=== PATIENT | female | born 1970 | race Two or more races ===

== ENCOUNTER 2017-02-03 15:07 | Inpatient (IN) | payer SELFPAY ==
[2017-02-03] VITALS (18 sets, daily range): BP systolic 117–180; BP diastolic 72–102
[~2017-02-03] VITALS: Ht 165.1 cm; Wt 86.6 kg
--- NOTE | 2017-02-03 15:55 | PHYS DOC ---
Adult General Chief Complaint Chief Complaint: ABNORMAL LABS HPI HPI Patient is a 46 year old female who presents with history of type 2 diabetes no definite history of congestive heart failure who presents with a one-week history of increased shortness of breath and some chest tightness and increased leg swelling. She was referred here from the [facility] clinic due to low hemoglobin. She denies any nausea vomiting diarrhea melena black stool or hematemesis. She had a very light menstrual period one month ago denies heavy vaginal bleeding. Has never received a transfusion before. Recent diagnosis of UTI on Monday and started on Bactrim. She has a history of taking Lasix. Review of Systems Review of Systems Constitutional: Denies fever or chills [] Eyes: Denies change in visual acuity, redness, or eye pain [] HENT: Denies nasal congestion or sore throat [] Respiratory: Denies cough or shortness of breath [] Cardiovascular: No additional information not addressed in HPI [] GI: Denies abdominal pain, nausea, vomiting, bloody stools or diarrhea [] : Denies dysuria or hematuria [] Musculoskeletal: Denies back pain or joint pain [] Integument: Denies rash or skin lesions [] Neurologic: Denies headache, focal weakness or sensory changes [] Endocrine: Denies polyuria or polydipsia [] Current Medications Current Medications Current Medications Medications (Trade) Dose Ordered Sig/Evan Start Time Stop Time Status Last Admin Dose Admin Furosemide (Lasix) 40 mg 1X ONCE 02/03/17 16:45 02/03/17 16:46 Allergies Allergies Allergies Coded Allergies Type Severity Reaction Last Updated Verified No Known Drug Allergies 02/03/17 No Physical Exam Physical Exam Constitutional: Well developed, well nourished, mild respiratory acute distress , non-toxic appearance. [] HENT: Normocephalic, atraumatic, bilateral external ears normal, oropharynx moist, no oral exudates, nose normal. [] Eyes: PERRLA, EOMI, conjunctiva pale, no discharge. [] Neck: Normal range of motion, no tenderness, supple, no stridor. [] Cardiovascular:Heart rate regular rhythm, no murmur [] Lungs & Thorax: Bilateral breath sounds clear to auscultation [] Abdomen: Bowel sounds normal, soft, no tenderness, no masses, no pulsatile masses. [] Skin: Warm, dry, no erythema, no rash. [] Back: No tenderness, no CVA tenderness. [] Extremities: No tenderness, no cyanosis, no clubbing, ROM intact, 2+ pitting edema. [] Neurologic: Alert and oriented X 3, normal motor function, normal sensory function, no focal deficits noted. [] Psychologic: Affect normal, judgement normal, mood normal. [] Current Patient Data Vital Signs Vital Signs Date Time Temp Pulse Resp B/P (MAP) Pulse Ox O2 Delivery O2 Flow Rate FiO2 02/03/17 15:45 98.5 96 18 196/93 (127) 100 Room Air 98.5 Lab Values Laboratory Tests Test 02/03/17 15:15 White Blood Count 9.9 x10^3/uL (4.0-11.0) Red Blood Count 4.08 x10^6/uL (3.50-5.40) Hemoglobin 5.5 g/dL (12.0-15.5) *L Hematocrit 21.6 % (36.0-47.0) L Mean Corpuscular Volume 53 fL (79-100) L Mean Corpuscular Hemoglobin 14 pg (25-35) L Mean Corpuscular Hemoglobin Concent 26 g/dL (31-37) L Red Cell Distribution Width 21.6 % (11.5-14.5) H Platelet Count 481 x10^3/uL (140-400) H Neutrophils (%) (Auto) 75 % (31-73) H Lymphocytes (%) (Auto) 16 % (24-48) L Monocytes (%) (Auto) 7 % (0-9) Eosinophils (%) (Auto) 2 % (0-3) Basophils (%) (Auto) 1 % (0-3) Neutrophils # (Auto) 7.4 x10^3uL (1.8-7.7) Lymphocytes # (Auto) 1.6 x10^3/uL (1.0-4.8) Monocytes # (Auto) 0.6 x10^3/uL (0.0-1.1) Eosinophils # (Auto) 0.2 x10^3/uL (0.0-0.7) Basophils # (Auto) 0.1 x10^3/uL (0.0-0.2) Platelet Estimate Pending Laboratory Tests 02/03/17 15:15 EKG EKG EKG normal sinus rhythm rate of 88 no STEMI somewhat low voltage QTC normal my interpretation] Radiology/Procedures Radiology/Procedures Chest x-ray [cardiomegaly my review my interpretation] Course & Med Decision Making Course & Med Decision Making Pertinent Labs and Imaging studies reviewed. (See chart for details) Labs showed a hemoglobin that was critically low at 5 MCV of 50 consistent with severe iron deficiency anemia. TSH was elevated at 25 consistent with hypothyroidism.. Patient has been crossmatched for 2 units packed red blood cells to be transfused when ready and give a dose of Lasix as the patient appears to be fluid overloaded and is hypertensive in the 190s. Due to the vital sign and amount 80s and low hemoglobin we will place in the ICU at least overnight. [] Dragon Disclaimer Dragon Disclaimer This electronic medical record was generated, in whole or in part, using a voice recognition dictation system. Departure Departure Impression: Primary Impression: Severe anemia Additional Impression: Hypothyroidism Disposition: ADMITTED INPATIENT Admitting Physician: Kiesha Reis Condition: GOOD Referrals: ROB KIM MD (PCP) Problem Qualifiers DAYANA DODGE MD Feb 03, 2017 15:55
--- NOTE | 2017-02-03 16:16 | RAD ---
Chest radiograph 02/03/2017 at 1605 hours Indication: Shortness of breath for one week and chest tightness Comparison: None available Technique: Portable frontal upright view of the chest is provided. Findings: Cardiomediastinal silhouette is borderline enlarged. There is a small right pleural effusion with adjacent compressive atelectasis and/or airspace disease. Pleural fluid appears to be tracking along the right lateral chest wall. No pneumothorax. No pulmonary vascular congestion. Impression: 1. Small right pleural effusion with adjacent atelectasis and/or infiltrate. 2. Borderline enlargement of the cardiac silhouette.
[2017-02-03 16:24] LABS: BILIRUBIN,URINE NEGATIVE (NEG); GLUCOSE,URINE NEGATIVE (NEG); NITRITE,URINE NEGATIVE (NEG); PH,URINE 6.5; PROTEIN,URINE NEGATIVE (NEG-TRACE)
[2017-02-03 16:28] LABS: BASO # 0.1 x10^3/uL (0.0-0.2); BASO % 1 % (0-3); EOS % 2 % (0-3); HEMATOCRIT 21.6 % (36.0-47.0); LYMPH # 1.6 x10^3/uL (1.0-4.8); LYMPH % 16 % (24-48); MEAN CORPUSCULAR HEMOGLOBIN 14 pg (25-35); MEAN CORPUSCULAR HGB CONC 26 g/dL (31-37); MEAN CORPUSCULAR VOLUME 53 fL (79-100); MONO % 7 % (0-9); NEUT % 75 % (31-73); PLATELET COUNT 481 x10^3/uL (140-400); RED BLOOD COUNT 4.08 x10^6/uL (3.50-5.40); RED CELL DISTRIBUTION WIDTH 21.6 % (11.5-14.5); WHITE BLOOD COUNT 9.9 x10^3/uL (4.0-11.0)
[2017-02-03 16:33] LABS: HEMOGLOBIN 5.5 g/dL (12.0-15.5)
[2017-02-03 16:38] LABS: RBC,URINE 0 /HPF (0-2)
[2017-02-03 16:39] LABS: BACTERIA,URINE FEW /HPF (0-FEW); SQUAMOUS EPITHELIAL CELL,UR FEW /LPF
[2017-02-03 16:43] LABS: CALCIUM 8.6 mg/dL (8.5-10.1); CREATININE 0.7 mg/dL (0.6-1.0); GFR 90.1
[2017-02-03] MEDS ORDERED: FUROSEMIDE 40 MG/4 ML VIAL. IVP ONE (16:45)
[2017-02-03] MEDS ORDERED: PROCHLORPERAZINE 10 MG/2 ML VIAL. IV PRN (16:45)
[2017-02-03] MEDS ORDERED: ACETAMINOPHEN 325 MG TABLET. PO PRN (16:45)
[2017-02-03] MEDS ORDERED: ONDANSETRON PF 4 MG/2 ML VIAL. IV PRN (16:45)
[2017-02-03] MEDS ORDERED: LABETALOL 20 MG/4 ML DISP.SYRIN. IVP PRN (16:45)
[2017-02-03] MEDS ORDERED: MORPHINE SULFATE 2 MG/ML DISP.SYRIN. IV PRN (16:45)
[2017-02-03 16:49] LABS: ANISOCYTOSIS MOD; HYPOCHROMIA MARKED; MICROCYTOSIS MARKED; PLT ESTIMATE INCREASED (ADEQUATE); POLYCHROMASIA SLIGHT
[2017-02-03 16:52] LABS: ALBUMIN 3.6 g/dL (3.4-5.0); ALBUMIN/GLOBULIN RATIO 0.8 (1.0-1.7); TOTAL BILIRUBIN 0.6 mg/dL (0.2-1.0); TOTAL PROTEIN 8.4 g/dL (6.4-8.2)
[2017-02-03 16:59] LABS: % SAT IRON 2 % (15-34); IRON,SERUM 10 ug/dL (50-170)
[2017-02-03] MEDS ORDERED: LEVOTHYROXINE 150 MCG TABLET PO SCH (17:00)
--- NOTE | 2017-02-03 17:12 | PDOC1 ---
History and Physical Date of Admission Date of Admission DATE: 02/03/17 TIME: 17:03 Identification/Chief Complaint Chief Complaint soa, leg swelling, gaining weight Problems: Source Source: Caregiver, Chart review, Patient History of Present Illness History of Present Illness 46 y.o female follows at [facility], sent it for abN labs, severe anemia and UTI started on PO bactrim BUt upon ER arrival, plus 3-4 pitting leg edema, SOA, obese, puffy all over, CXR shows some congestion, - all new to pt NO known cardiac dse BUT TSH is 25, Hx obtained via electrical products engineer, claims was on thyroid medication 6 mos ago , but was stopped bec levels were "normal"/did not need it" NOw admits to few days hx "fluid all over", leg swelling. HGb 5,.5, MCV 50s, spotty menses only (emilie menopausal), denies black tarry stool or hematochezia Will get a dose of lasix at ER THESE labs and PE findings are all from SEVERE HYPOTHYRODISM, and i did educate and milieu counselor > 30 mins on phone alone, Discussed importance of taking meds and having levels rechecked in 4 weeks,. Luckily no coma, will give first dose of PO synthroid now weight based, transfuse after iron panel obtained and agree with ICU. COnt antibiotics for UTI Dw SHEET METAL FORMER and ER MD, SHEET METAL FORMER at bedside and chief internal auditor Past Medical History Pulmonary: Bronchitis Infectious disease: Other (UTI) Endocrine: Hypothyroidism Past Surgical History Past Surgical History: No pertinent history Family History Family History: High Cholestrol, Hypertension Social History Smoke: No ALCOHOL: none Drugs: None Current Medications Current Medications Current Medications Furosemide (Lasix) 40 mg 1X ONCE IVP ; Start 02/03/17 at 16:45; Stop 02/03/17 at 16:46; Status DC Ondansetron HCl (Zofran) 4 mg PRN Q6HRS PRN IV NAUSEA/VOMITING; Start 02/03/17 at 16:45 Prochlorperazine Edisylate (Compazine) 10 mg PRN Q6HRS PRN IV NAUSEA/VOMITING; Start 02/03/17 at 16:45 Oxycodone HCl (Roxicodone) 5 mg PRN Q3HRS PRN PO BREAKTHROUGH PAIN; Start 02/03 at 16:45 Morphine Sulfate 1 mg PRN Q1HR PRN IV PAIN; Start 02/03/17 at 16:45 Acetaminophen (Tylenol) 650 mg PRN Q6HRS PRN PO Headaches, Temp > 101.5F; Start 02/03/17 at 16:45 Levothyroxine Sodium (Synthroid) 150 mcg DAILY07 PO ; Start 02/03/17 at 17:00; Status Cancel Labetalol HCl (Normodyne) 10 mg PRN Q2HR PRN IVP 160/100; Start 02/03/17 at 16: 45 Levothyroxine Sodium (Synthroid) 150 mcg DAILY07 PO ; Start 02/03/17 at 17:00 Allergies Allergies: Coded Allergies: No Known Drug Allergies (Unverified , 02/03/17) ROS General: YES: Fatigue, Malaise, Appetite (dec PO) PSYCHOLOGICAL ROS: YES: Decreased libido Eyes: No Blurry vision, No Decreased vision, No Double vision, No Dry eyes, No Excessive tearing, No Eye Pain, No Itchy Eyes, No Loss of vision, No Photophobia , No Scotomata, No Uses contacts, No Uses glasses, No Other HEENT: No: Heacaches, Visual Changes, Hearing change, Nasal congestion, Nasal discharge, Oral lesions, Sinus pain, Sore Throat, Epistaxis, Sneezing, Snoring, Tinnitus, Vertigo, Vocal changes, Other ALLERGY AND IMMUNOLOGY: No: Hives, Insect Bite Sensitivity, Itchy/Watery Eyes, Nasal Congestion, Post Nasal Drip, Seasonal Allergies, Other Hematological and Lymphatic: No: Bleeding Problems, Blood Clots, Blood Transfusions, Brusing, Night Sweats, Pallor, Swollen Lymph Nodes, Other ENDOCRINE: No: Breast Changes, Galactorrhea, Hair Pattern Changes, Hot Flashes , Malaise/lethargy, Mood Swings, Palpitations, Polydipsia/polyuria, Skin Changes , Temperature Intolerance, Unexpected Weight Changes, Other Breast: No New/Changing Breast Lumps, No Nipple changes, No Nipple discharge, No Other Respiratory: YES: Shortness of breath, SOB with excertion Cardiovascular: yes Edema Gastrointestinal: No Nausea, No Vomiting, No Abdominal Pain, No Diarrhea, No Constipation, No Melena, No Hematochezia, No Other Genitourinary: No Dysuria, No Frequency, No Incontinence, No Hematuria, No Retention, No Discharge, No Urgency, No Pain, No Flank Pain, No Other, No , No , No , No , No , No , No Musculoskeletal: No Gait Disturbance, No Joint Pain, No Joint Stiffness, No Joint Swelling, No Muscle Pain, No Muscular Weakness, No Pain In:, No Swelling In:, No Other Neurological: No Behavorial Changes, No Bowel/Bladder ControlChng, No Confusion , No Dizziness, No Gait Disturbance, No Headaches, No Impaired Coord/balance, No Memory Loss, No Numbness/Tingling, No Seizures, No Speech Problems, No Tremors, No Visual Changes, No Weakness, No Other Skin: No Dry Skin, No Eczema, No Hair Changes, No Lumps, No Mole Changes, No Mottling, No Nail Changes, No Pruritus, No Rash, No Skin Lesion Changes, No Other, No Acne Physical Exam General: Alert, Oriented X3, Cooperative, No acute distress HEENT: Atraumatic, PERRLA Lungs: Normal air movement, Other (dec BS, poor effort) Cardiovascular: S1, S2 Breasts: Normal Abdomen: Normal bowel sounds, Soft, No tenderness, No hepatosplenomegaly, No masses Rectal Exam: not examined Extremities: Other (plus 3 pitting edema) Skin: No rashes, No breakdown, No significant lesion Neuro: Normal gait, Normal speech, Strength at 5/5 X4 ext, Normal tone, Sensation intact, Cranial nerves 3-12 NL, Reflexes 2+ Psych/Mental Status: Mental status NL, Mood NL Vitals Vitals Vital Signs Date Time Temp Pulse Resp B/P (MAP) Pulse Ox O2 Delivery O2 Flow Rate FiO2 02/03/17 15:45 98.5 96 18 196/93 (127) 100 Room Air 98.5 Labs Labs Laboratory Tests Test 02/03/17 15:15 02/03/17 16:10 White Blood Count 9.9 x10^3/uL (4.0-11.0) Red Blood Count 4.08 x10^6/uL (3.50-5.40) Hemoglobin 5.5 g/dL (12.0-15.5) Hematocrit 21.6 % (36.0-47.0) Mean Corpuscular Volume 53 fL (79-100) Mean Corpuscular Hemoglobin 14 pg (25-35) Mean Corpuscular Hemoglobin Concent 26 g/dL (31-37) Red Cell Distribution Width 21.6 % (11.5-14.5) Platelet Count 481 x10^3/uL (140-400) Neutrophils (%) (Auto) 75 % (31-73) Lymphocytes (%) (Auto) 16 % (24-48) Monocytes (%) (Auto) 7 % (0-9) Eosinophils (%) (Auto) 2 % (0-3) Basophils (%) (Auto) 1 % (0-3) Neutrophils # (Auto) 7.4 x10^3uL (1.8-7.7) Lymphocytes # (Auto) 1.6 x10^3/uL (1.0-4.8) Monocytes # (Auto) 0.6 x10^3/uL (0.0-1.1) Eosinophils # (Auto) 0.2 x10^3/uL (0.0-0.7) Basophils # (Auto) 0.1 x10^3/uL (0.0-0.2) Platelet Estimate Increased (ADEQUATE) Polychromasia Slight Hypochromasia Marked Anisocytosis Mod Microcytosis Marked Sodium Level 134 mmol/L (136-145) Potassium Level 4.0 mmol/L (3.5-5.1) Chloride Level 100 mmol/L (98-107) Carbon Dioxide Level 26 mmol/L (21-32) Anion Gap 8 (6-14) Blood Urea Nitrogen 12 mg/dL (7-20) Creatinine 0.7 mg/dL (0.6-1.0) Estimated GFR (Cockcroft-Gault) 90.1 BUN/Creatinine Ratio 17 (6-20) Glucose Level 208 mg/dL (70-99) Calcium Level 8.6 mg/dL (8.5-10.1) Total Bilirubin 0.6 mg/dL (0.2-1.0) Aspartate Amino Transf (AST/SGOT) 37 U/L (15-37) Alanine Aminotransferase (ALT/SGPT) 18 U/L (14-59) Alkaline Phosphatase 115 U/L (46-116) Troponin I Quantitative < 0.017 ng/mL (0.000-0.055) QN-Etu-T-Type Natriuretic Peptide 79 pg/mL (0-124) Total Protein 8.4 g/dL (6.4-8.2) Albumin 3.6 g/dL (3.4-5.0) Albumin/Globulin Ratio 0.8 (1.0-1.7) Lipase 216 U/L (73-393) Urine Collection Type Unknown Urine Color Yellow Urine Clarity Clear Urine pH 6.5 Urine Specific Hardy 1.015 Urine Protein Negative mg/dL (NEG-TRACE) Urine Glucose (UA) Negative mg/dL (NEG) Urine Ketones (Stick) Negative mg/dL (NEG) Urine Blood Negative (NEG) Urine Nitrite Negative (NEG) Urine Bilirubin Negative (NEG) Urine Urobilinogen Dipstick 1.0 mg/dL (0.2 mg/dL) Urine Leukocyte Esterase Moderate (NEG) Urine RBC 0 /HPF (0-2) Urine WBC 5-10 /HPF (0-4) Urine Squamous Epithelial Cells Few /LPF Urine Bacteria Few /HPF (0-FEW) Urine Mucus Slight /LPF Laboratory Tests Test 02/03/17 15:15 02/03/17 16:10 White Blood Count 9.9 x10^3/uL (4.0-11.0) Red Blood Count 4.08 x10^6/uL (3.50-5.40) Hemoglobin 5.5 g/dL (12.0-15.5) Hematocrit 21.6 % (36.0-47.0) Mean Corpuscular Volume 53 fL (79-100) Mean Corpuscular Hemoglobin 14 pg (25-35) Mean Corpuscular Hemoglobin Concent 26 g/dL (31-37) Red Cell Distribution Width 21.6 % (11.5-14.5) Platelet Count 481 x10^3/uL (140-400) Neutrophils (%) (Auto) 75 % (31-73) Lymphocytes (%) (Auto) 16 % (24-48) Monocytes (%) (Auto) 7 % (0-9) Eosinophils (%) (Auto) 2 % (0-3) Basophils (%) (Auto) 1 % (0-3) Neutrophils # (Auto) 7.4 x10^3uL (1.8-7.7) Lymphocytes # (Auto) 1.6 x10^3/uL (1.0-4.8) Monocytes # (Auto) 0.6 x10^3/uL (0.0-1.1) Eosinophils # (Auto) 0.2 x10^3/uL (0.0-0.7) Basophils # (Auto) 0.1 x10^3/uL (0.0-0.2) Platelet Estimate Increased (ADEQUATE) Polychromasia Slight Hypochromasia Marked Anisocytosis Mod Microcytosis Marked Sodium Level 134 mmol/L (136-145) Potassium Level 4.0 mmol/L (3.5-5.1) Chloride Level 100 mmol/L (98-107) Carbon Dioxide Level 26 mmol/L (21-32) Anion Gap 8 (6-14) Blood Urea Nitrogen 12 mg/dL (7-20) Creatinine 0.7 mg/dL (0.6-1.0) Estimated GFR (Cockcroft-Gault) 90.1 BUN/Creatinine Ratio 17 (6-20) Glucose Level 208 mg/dL (70-99) Calcium Level 8.6 mg/dL (8.5-10.1) Total Bilirubin 0.6 mg/dL (0.2-1.0) Aspartate Amino Transf (AST/SGOT) 37 U/L (15-37) Alanine Aminotransferase (ALT/SGPT) 18 U/L (14-59) Alkaline Phosphatase 115 U/L (46-116) Troponin I Quantitative < 0.017 ng/mL (0.000-0.055) XH-Tfx-J-Type Natriuretic Peptide 79 pg/mL (0-124) Total Protein 8.4 g/dL (6.4-8.2) Albumin 3.6 g/dL (3.4-5.0) Albumin/Globulin Ratio 0.8 (1.0-1.7) Lipase 216 U/L (73-393) Urine Collection Type Unknown Urine Color Yellow Urine Clarity Clear Urine pH 6.5 Urine Specific Hardy 1.015 Urine Protein Negative mg/dL (NEG-TRACE) Urine Glucose (UA) Negative mg/dL (NEG) Urine Ketones (Stick) Negative mg/dL (NEG) Urine Blood Negative (NEG) Urine Nitrite Negative (NEG) Urine Bilirubin Negative (NEG) Urine Urobilinogen Dipstick 1.0 mg/dL (0.2 mg/dL) Urine Leukocyte Esterase Moderate (NEG) Urine RBC 0 /HPF (0-2) Urine WBC 5-10 /HPF (0-4) Urine Squamous Epithelial Cells Few /LPF Urine Bacteria Few /HPF (0-FEW) Urine Mucus Slight /LPF VTE Prophylaxis Ordered VTE Prophylaxis Devices: Yes VTE Pharmacological Prophylaxi: Yes Assessment/Plan Assessment/Plan 1. Severe hypothyroidism with no coma (TSH 25) 2. Plus 3-4 pitting edema 3. SOA, Pulm congestion sec to # 1 4. Severe microcytic anemia (hgb 5) 5. Emilie menopausal 6. Obesity 7. UTI PLAN: Admit ICU Agree with lasix Start synthroid based on weight will get 150mcg PO daily on an empty stomach preferably Supportive care NEbs Transfuse 2 pRBC properly typed and cross match AFTER getting iron panel; All signs and sxs can be explained by severe hypothyroidism Check T3 abnd T4, should be appropriately LOW, otherwise will need MRI brain r.o secondary causes Rpt Thyrpid levels in 4 weeks as OP Dw via phone surgical assistant certified, signif counselling CC 45 mins CHRISTOPHER PERKINS MD Feb 03, 2017 17:12
[2017-02-03 17:13] LABS: FREE T4 0.76 ng/dL (0.76-1.46)
[2017-02-03] MEDS: LEVOTHYROXINE 150 MCG TABLET PO SCH (18:48)
[2017-02-03] MEDS: oxyCODONE IR 5 MG TABLET PO PRN (21:29)
[2017-02-03] MEDS: SMZ/TMP 800/160MG TABLET. PO SCH (21:29)
[2017-02-03] MEDS: FERROUS SULFATE 325 MG TABLET. PO SCH (21:31)
[2017-02-03 22:51] LABS: HEMATOCRIT 25.7 % (36.0-47.0); HEMOGLOBIN 7.5 g/dL (12.0-15.5); RED BLOOD COUNT 4.42 x10^6/uL (3.50-5.40); RED CELL DISTRIBUTION WIDTH 30.3 % (11.5-14.5); WHITE BLOOD COUNT 10.5 x10^3/uL (4.0-11.0)
--- NOTE | 2017-02-03 23:35 | ACF ---
Admission Forms Criteria ANEMIA, IRON DEFICIENCY OR UNSPECIFIED Clinical Indications for Inpatient Care (Place 'X' for any and all applicable criteria): Admission is indicated for ANY ONE of the following(1)(2)(3)(4)(5)(6)(7): [X] I. Inpatient admission required rather than observation care (Also use Anemia, Iron Deficiency or Unspecified: Observation Care guideline as appropriate) because of ANY ONE of the following: [] a) Hemodynamic instability that is severe or persistent [] b) Active bleeding that cannot be rapidly controlled [] c) CVS symptoms (i.e., dyspnea, chest pain, heart failure) that are severe or persistent [] d) Neurologic symptoms (i.e., cognitive impairment, recurrent syncope or near syncope) that are severe or persistent [] e) Cardiac arrhythmias of immediate concern [] f) Acute peripheral ischemia (e.g., pulseless, cool, mottled, or cyanotic extremity) [] g) High-risk low platelet count [] h) Acute renal failure [] i) Ongoing transfusion for blood loss (greater than 2 units) [] j) IV fluid to replace significant ongoing (eg, >24 hours) losses (> 3 L/m2 per day) [] k) Pulmonary artery catheter monitoring [] l) Supplemental oxygen or respiratory treatments for over 24 hours that are performable only in acute inpatient setting [] m) Immediate inpatient surgery [X] n) Other condition, treatment or monitoring requiring inpatient admission [] II Active massive hemorrhage [] III. Active hemolysis with rapidly progressive anemia [A](6) Extended stay beyond goal length of stay may be needed for (17)(18) []a) Diagnosed cause of anemia requiring longer hospitalization (eg, active GI bleeding, immune hemolysis requiring electrophoresis, complications of malignancy requiring acute care []b) Continued emergent anemia indicators (23) []c) Transfusion reactions []d) Associated leukopenia or thrombocytopenia needing inpatient care []e) Active comorbidities (eg, renal failure, heart failure) The original [facility] content created by [facility] has been revised. The portions of the content which have been revised are identified through the use of italic text or in bold. [facility] Guidelines has neither reviewed nor approved the modified material. All other unmodified content is copyright [facility]. Please see references footnoted in the original [facility] edition 2016 Admission Criteria Met?: Yes SUDHA DOUGHERTY Feb 03, 2017 23:35
[2017-02-04] VITALS (15 sets, daily range): BP systolic 113–167; BP diastolic 63–95
[2017-02-04 05:16] LABS: BASO # 0.1 x10^3/uL (0.0-0.2); BASO % 1 % (0-3); EOS % 2 % (0-3); HEMATOCRIT 25.1 % (36.0-47.0); HEMOGLOBIN 7.4 g/dL (12.0-15.5); LYMPH # 1.8 x10^3/uL (1.0-4.8); LYMPH % 17 % (24-48); MEAN CORPUSCULAR HEMOGLOBIN 17 pg (25-35); MEAN CORPUSCULAR HGB CONC 29 g/dL (31-37); MEAN CORPUSCULAR VOLUME 58 fL (79-100); MONO % 7 % (0-9); NEUT % 73 % (31-73); PLATELET COUNT 424 x10^3/uL (140-400); RED BLOOD COUNT 4.31 x10^6/uL (3.50-5.40); RED CELL DISTRIBUTION WIDTH 29.9 % (11.5-14.5); WHITE BLOOD COUNT 10.2 x10^3/uL (4.0-11.0)
[2017-02-04 05:30] LABS: CALCIUM 8.4 mg/dL (8.5-10.1); CREATININE 0.6 mg/dL (0.6-1.0); GFR 107.6; POTASSIUM 3.8 mmol/L (3.5-5.1)
[2017-02-04] MEDS: LEVOTHYROXINE 150 MCG TABLET PO SCH (07:55)
[2017-02-04] MEDS: FERROUS SULFATE 325 MG TABLET. PO SCH ×2 (08:25→17:23)
[2017-02-04] MEDS: SMZ/TMP 800/160MG TABLET. PO SCH ×2 (08:26→20:21)
[2017-02-04] MEDS: oxyCODONE IR 5 MG TABLET PO PRN ×2 (08:26→23:23)
[2017-02-04] MEDS ORDERED: FUROSEMIDE 40 MG/4 ML VIAL. IVP SCH (09:00)
[2017-02-04] MEDS ORDERED: DEXTROSE 50% 25 GM / 50ML DISP.SYRIN. IV PRN (09:30)
--- NOTE | 2017-02-04 09:36 | PDOC2 ---
CARDIAC CONSULT DATE OF CONSULT Date of Consult DATE: 02/04/17 TIME: 09:30 REASON FOR CONSULT Reason for Consult: New onset CHF REFERRING PHYSICIAN Referring Physician: Smiley SOURCE Source: Chart review, Patient HISTORY OF PRESENT ILLNESS HISTORY OF PRESENT ILLNESS This is a 46 yo female admitted for complains of SOA and leg swelling. Reports that she has been SOA for thed last few days with MIKE. Denies any CP, palpitations. Pt reports no obvious bleed. She does have hypothyroidism, HTN, and DM2 but she has not been taking her medications verablizing that she is better. She is wanting to go home currently and explained to her the treatment plan. Denies any CAD, VTE. Per chart review noted with past CHF. Presently she is having tingling to her LE but no pain otherwise denies any discomfort. PAST MEDICAL HISTORY Cardiovascular: CHF, HTN, Hyperlipidemia Pulmonary: No pertinent hx CENTRAL NERVOUS SYSTEM: Other (No pertinent history) GI: No pertinent hx Hepatobiliary: No pertinent hx Renal/: UTI Endocrine: Diabetes (2), Hypothyroidism PAST SURGICAL HISTORY Past Surgical History: No pertinent history FAMILY HISTORY Family History: Family History Unknown SOCIAL HISTORY Smoke: No ALCOHOL: none Drugs: None CURRENT MEDICATIONS CURRENT MEDICATIONS Current Medications Medications (Trade) Dose Ordered Sig/Evan Route PRN Reason Start Time Stop Time Status Last Admin Dose Admin Furosemide (Lasix) 40 mg 1X ONCE IVP 02/03/17 16:45 02/03/17 16:46 DC 02/03/17 17:18 Ondansetron HCl (Zofran) 4 mg PRN Q6HRS PRN IV NAUSEA/VOMITING 02/03/17 16:45 02/03/17 17:17 Oxycodone HCl (Roxicodone) 5 mg PRN Q3HRS PRN PO BREAKTHROUGH PAIN 02/03/17 16:45 02/04/17 08:26 Morphine Sulfate 1 mg PRN Q1HR PRN IV PAIN 02/03/17 16:45 02/03/17 22:13 Levothyroxine Sodium (Synthroid) 150 mcg DAILY07 PO 02/03/17 17:00 02/04/17 07:55 Trimethoprim/ Sulfamethoxazole (Bactrim Ds) 1 tab BID PO 02/03/17 20:00 02/04/17 08:26 Furosemide (Lasix) 40 mg DAILY IVP 02/04/17 09:00 02/04/17 08:25 Ferrous Sulfate (Feosol) 325 mg DAILYWBKFT PO 02/03/17 20:15 02/04/17 08:25 ALLERGIES ALLERGIES: Coded Allergies: No Known Drug Allergies (Unverified , 02/03/17) ROS Review of System Not in distress. Feels better after blood transfusion. limited due to language barrier PHYSICAL EXAM General: Alert, Oriented X3, Cooperative, No acute distress HEENT: Atraumatic, Mucous membr. moist/pink Lungs: Other (basilra crackles) Heart: Regular rate (SR), Normal S1, Normal S2, Other (2/6 ysstolic murmur to LLS border) Abdomen: Soft, No tenderness Extremities: No cyanosis, Other (2+ bilateral LE pitting edema) Skin: No breakdown, No significant lesion Neuro: Normal speech, Sensation intact Psych/Mental Status: Mental status NL, Mood NL MUSCULOSKELETAL: Osteoarthritic changes both hands VITALS VITALS Vital Signs Date Time Temp Pulse Resp B/P (MAP) Pulse Ox O2 Delivery O2 Flow Rate FiO2 02/04/17 08:26 21 98 Room Air 02/04/17 08:00 99.3 84 133/77 (95) 99.3 LABS Lab: Laboratory Tests Test 02/03/17 15:15 02/03/17 16:10 02/03/17 16:35 02/03/17 22:45 White Blood Count 9.9 x10^3/uL (4.0-11.0) 10.5 x10^3/uL (4.0-11.0) Red Blood Count 4.08 x10^6/uL (3.50-5.40) 4.42 x10^6/uL (3.50-5.40) Hemoglobin 5.5 g/dL (12.0-15.5) 7.5 g/dL (12.0-15.5) Hematocrit 21.6 % (36.0-47.0) 25.7 % (36.0-47.0) Mean Corpuscular Volume 53 fL (79-100) 58 fL (79-100) Mean Corpuscular Hemoglobin 14 pg (25-35) 17 pg (25-35) Mean Corpuscular Hemoglobin Concent 26 g/dL (31-37) 29 g/dL (31-37) Red Cell Distribution Width 21.6 % (11.5-14.5) 30.3 % (11.5-14.5) Platelet Count 481 x10^3/uL (140-400) 464 x10^3/uL (140-400) Neutrophils (%) (Auto) 75 % (31-73) Lymphocytes (%) (Auto) 16 % (24-48) Monocytes (%) (Auto) 7 % (0-9) Eosinophils (%) (Auto) 2 % (0-3) Basophils (%) (Auto) 1 % (0-3) Neutrophils # (Auto) 7.4 x10^3uL (1.8-7.7) Lymphocytes # (Auto) 1.6 x10^3/uL (1.0-4.8) Monocytes # (Auto) 0.6 x10^3/uL (0.0-1.1) Eosinophils # (Auto) 0.2 x10^3/uL (0.0-0.7) Basophils # (Auto) 0.1 x10^3/uL (0.0-0.2) Platelet Estimate Increased (ADEQUATE) Polychromasia Slight Hypochromasia Marked Anisocytosis Mod Microcytosis Marked Sodium Level 134 mmol/L (136-145) Potassium Level 4.0 mmol/L (3.5-5.1) Chloride Level 100 mmol/L (98-107) Carbon Dioxide Level 26 mmol/L (21-32) Anion Gap 8 (6-14) Blood Urea Nitrogen 12 mg/dL (7-20) Creatinine 0.7 mg/dL (0.6-1.0) Estimated GFR (Cockcroft-Gault) 90.1 BUN/Creatinine Ratio 17 (6-20) Glucose Level 208 mg/dL (70-99) Calcium Level 8.6 mg/dL (8.5-10.1) Total Bilirubin 0.6 mg/dL (0.2-1.0) Aspartate Amino Transf (AST/SGOT) 37 U/L (15-37) Alanine Aminotransferase (ALT/SGPT) 18 U/L (14-59) Alkaline Phosphatase 115 U/L (46-116) Troponin I Quantitative < 0.017 ng/mL (0.000-0.055) ZR-[id number]-R-Type Natriuretic Peptide 79 pg/mL (0-124) Total Protein 8.4 g/dL (6.4-8.2) Albumin 3.6 g/dL (3.4-5.0) Albumin/Globulin Ratio 0.8 (1.0-1.7) Lipase 216 U/L (73-393) Urine Collection Type Unknown Urine Color Yellow Urine Clarity Clear Urine pH 6.5 Urine Specific [place] 1.015 Urine Protein Negative mg/dL (NEG-TRACE) Urine Glucose (UA) Negative mg/dL (NEG) Urine Ketones (Stick) Negative mg/dL (NEG) Urine Blood Negative (NEG) Urine Nitrite Negative (NEG) Urine Bilirubin Negative (NEG) Urine Urobilinogen Dipstick 1.0 mg/dL (0.2 mg/dL) Urine Leukocyte Esterase Moderate (NEG) Urine RBC 0 /HPF (0-2) Urine WBC 5-10 /HPF (0-4) Urine Squamous Epithelial Cells Few /LPF Urine Bacteria Few /HPF (0-FEW) Urine Mucus Slight /LPF Iron Level 10 ug/dL (50-170) Total Iron Binding Capacity 463 ug/dL (250-450) Iron Saturation 2 % (15-34) Free Thyroxine 0.76 ng/dL (0.76-1.46) Free Triiodothyronine (T3) pg/mL 1.91 pg/mL (2.18-3.98) Test 02/04/17 04:30 White Blood Count 10.2 x10^3/uL (4.0-11.0) Red Blood Count 4.31 x10^6/uL (3.50-5.40) Hemoglobin 7.4 g/dL (12.0-15.5) Hematocrit 25.1 % (36.0-47.0) Mean Corpuscular Volume 58 fL (79-100) Mean Corpuscular Hemoglobin 17 pg (25-35) Mean Corpuscular Hemoglobin Concent 29 g/dL (31-37) Red Cell Distribution Width 29.9 % (11.5-14.5) Platelet Count 424 x10^3/uL (140-400) Neutrophils (%) (Auto) 73 % (31-73) Lymphocytes (%) (Auto) 17 % (24-48) Monocytes (%) (Auto) 7 % (0-9) Eosinophils (%) (Auto) 2 % (0-3) Basophils (%) (Auto) 1 % (0-3) Neutrophils # (Auto) 7.5 x10^3uL (1.8-7.7) Lymphocytes # (Auto) 1.8 x10^3/uL (1.0-4.8) Monocytes # (Auto) 0.7 x10^3/uL (0.0-1.1) Eosinophils # (Auto) 0.2 x10^3/uL (0.0-0.7) Basophils # (Auto) 0.1 x10^3/uL (0.0-0.2) Sodium Level 135 mmol/L (136-145) Potassium Level 3.8 mmol/L (3.5-5.1) Chloride Level 99 mmol/L (98-107) Carbon Dioxide Level 29 mmol/L (21-32) Anion Gap 7 (6-14) Blood Urea Nitrogen 8 mg/dL (7-20) Creatinine 0.6 mg/dL (0.6-1.0) Estimated GFR (Cockcroft-Gault) 107.6 Glucose Level 202 mg/dL (70-99) Calcium Level 8.4 mg/dL (8.5-10.1) Thyroid Stimulating Hormone (TSH) 51.298 uIU/mL (0.358-3.74) ASSESSMENT/PLAN ASSESSMENT/PLAN 1. Severe Anemia: likely from hypothyroidism with iron deficiency. per PCP 2. High output failure: due to anemia initially at 5.5 and hypothyroid 3. Hypothyroidism: failed to take replacement w/u per PCP 4. UTI 5. DM2 6. Accelerated HTN Recommendations 1. EKG, TTE tomorrow 2. Lipid panel. DC lasix and place on lisinopril/HCTZ. Lasix if anymore blood transfusion 3. Statin per lipid level. Will defer ASA for now. Will need to start once HGB is much better for primary prevention. Problems: FRAN JACKSON [employer] Feb 04, 2017 09:36
--- NOTE | 2017-02-04 09:59 | EKG ---
[facility] [address] [place] [address] Test Date: 2017-02-04 Test Time: 10:01:45 Pat Name: BILLY TAYLOR Department: Room: 105 1 Gender: F Acid Extractor: JYOTI : 1970 Requested By: FRAN JACKSON Order Number: [id number] Reading MD: Measurements Intervals [place] Rate: 79 P: 27 [place]: 178 QRS: -10 QRSD: 72 T: 61 QT: 376 QTc: 437 Interpretive Statements SINUS RHYTHM LEFTWARD AXIS LOW LIMB LEAD VOLTAGE NO SPECIFIC ECG ABNORMALITIES RI6.01 No previous ECG available for comparison
--- NOTE | 2017-02-04 10:34 | EKG ---
[facility] [address] [place] [address] Test Date: 2017-02-03 Test Time: 16:09:28 Pat Name: BILLY TAYLOR Department: Room: Gender: F Press Writer: : 1970 Requested By: DAYANA DODGE Order Number: [id number] Reading MD: Measurements Intervals [place] Rate: 88 P: 29 AR: 164 QRS: -15 QRSD: 68 T: 74 QT: 342 QTc: 417 Interpretive Statements SINUS RHYTHM LEFTWARD AXIS LOW LIMB LEAD VOLTAGE NO SPECIFIC ECG ABNORMALITIES RI6.01 No previous ECG available for comparison
[2017-02-04 10:35] LABS: CHOLESTEROL/HDL RATIO 4.6
[2017-02-04] MEDS: hydroCHLOROthiazide 12.5 MG CAPSULE PO SCH (11:40)
[2017-02-04] MEDS: LISINOPRIL 20 MG TABLET PO SCH (11:41)
[2017-02-04] MEDS: INSULIN ASPART 300 UNITS/3 ML INSULN.PEN SQ SCH ×2 (11:43→17:27)
--- NOTE | 2017-02-04 13:43 | PDOC ---
PROGRESS NOTES Chief Complaint Chief Complaint 1. Severe hypothyroidism with no coma (TSH 50) 2. Plus 3 non pitting edema 3. SOA, Pulm congestion sec to # 1 4. Severe microcytic anemia (hgb 5) 5. Emilie menopausal 6. Obesity DM2 PLAN: fu with card, TTE tmr dc lasix as per card cont synthroid hb stable post 2uprbc ssi, check hba1c iron bid ok to transfer outof ICU History of Present Illness History of Present Illness feels better 2u PRBC done 02/03 Vitals Vitals Vital Signs Date Time Temp Pulse Resp B/P (MAP) Pulse Ox O2 Delivery O2 Flow Rate FiO2 02/04/17 12:00 97.6 74 28 132/77 (95) 100 Room Air 97.6 Physical Exam General: Alert, Oriented X3, Cooperative, No acute distress Heart: Regular rate (SR), Normal S1, Normal S2, Other (2/6 ysstolic murmur to LLS border) Lungs: Clear Abdomen: Soft, No tenderness Extremities: No cyanosis, Other ( 2+ non pitting edema) Skin: No breakdown, No significant lesion Labs LABS Laboratory Tests Test 02/03/17 15:15 02/03/17 16:10 02/03/17 16:35 02/03/17 22:45 White Blood Count 9.9 x10^3/uL (4.0-11.0) 10.5 x10^3/uL (4.0-11.0) Red Blood Count 4.08 x10^6/uL (3.50-5.40) 4.42 x10^6/uL (3.50-5.40) Hemoglobin 5.5 g/dL (12.0-15.5) 7.5 g/dL (12.0-15.5) Hematocrit 21.6 % (36.0-47.0) 25.7 % (36.0-47.0) Mean Corpuscular Volume 53 fL (79-100) 58 fL (79-100) Mean Corpuscular Hemoglobin 14 pg (25-35) 17 pg (25-35) Mean Corpuscular Hemoglobin Concent 26 g/dL (31-37) 29 g/dL (31-37) Red Cell Distribution Width 21.6 % (11.5-14.5) 30.3 % (11.5-14.5) Platelet Count 481 x10^3/uL (140-400) 464 x10^3/uL (140-400) Neutrophils (%) (Auto) 75 % (31-73) Lymphocytes (%) (Auto) 16 % (24-48) Monocytes (%) (Auto) 7 % (0-9) Eosinophils (%) (Auto) 2 % (0-3) Basophils (%) (Auto) 1 % (0-3) Neutrophils # (Auto) 7.4 x10^3uL (1.8-7.7) Lymphocytes # (Auto) 1.6 x10^3/uL (1.0-4.8) Monocytes # (Auto) 0.6 x10^3/uL (0.0-1.1) Eosinophils # (Auto) 0.2 x10^3/uL (0.0-0.7) Basophils # (Auto) 0.1 x10^3/uL (0.0-0.2) Platelet Estimate Increased (ADEQUATE) Polychromasia Slight Hypochromasia Marked Anisocytosis Mod Microcytosis Marked Sodium Level 134 mmol/L (136-145) Potassium Level 4.0 mmol/L (3.5-5.1) Chloride Level 100 mmol/L (98-107) Carbon Dioxide Level 26 mmol/L (21-32) Anion Gap 8 (6-14) Blood Urea Nitrogen 12 mg/dL (7-20) Creatinine 0.7 mg/dL (0.6-1.0) Estimated GFR (Cockcroft-Gault) 90.1 BUN/Creatinine Ratio 17 (6-20) Glucose Level 208 mg/dL (70-99) Calcium Level 8.6 mg/dL (8.5-10.1) Total Bilirubin 0.6 mg/dL (0.2-1.0) Aspartate Amino Transf (AST/SGOT) 37 U/L (15-37) Alanine Aminotransferase (ALT/SGPT) 18 U/L (14-59) Alkaline Phosphatase 115 U/L (46-116) Troponin I Quantitative < 0.017 ng/mL (0.000-0.055) VJ-Zit-[id number]-Type Natriuretic Peptide 79 pg/mL (0-124) Total Protein 8.4 g/dL (6.4-8.2) Albumin 3.6 g/dL (3.4-5.0) Albumin/Globulin Ratio 0.8 (1.0-1.7) Lipase 216 U/L (73-393) Urine Collection Type Unknown Urine Color Yellow Urine Clarity Clear Urine pH 6.5 Urine Specific [place] 1.015 Urine Protein Negative mg/dL (NEG-TRACE) Urine Glucose (UA) Negative mg/dL (NEG) Urine Ketones (Stick) Negative mg/dL (NEG) Urine Blood Negative (NEG) Urine Nitrite Negative (NEG) Urine Bilirubin Negative (NEG) Urine Urobilinogen Dipstick 1.0 mg/dL (0.2 mg/dL) Urine Leukocyte Esterase Moderate (NEG) Urine RBC 0 /HPF (0-2) Urine WBC 5-10 /HPF (0-4) Urine Squamous Epithelial Cells Few /LPF Urine Bacteria Few /HPF (0-FEW) Urine Mucus Slight /LPF Iron Level 10 ug/dL (50-170) Total Iron Binding Capacity 463 ug/dL (250-450) Iron Saturation 2 % (15-34) Free Thyroxine 0.76 ng/dL (0.76-1.46) Free Triiodothyronine (T3) pg/mL 1.91 pg/mL (2.18-3.98) Test 02/04/17 04:30 02/04/17 11:39 White Blood Count 10.2 x10^3/uL (4.0-11.0) Red Blood Count 4.31 x10^6/uL (3.50-5.40) Hemoglobin 7.4 g/dL (12.0-15.5) Hematocrit 25.1 % (36.0-47.0) Mean Corpuscular Volume 58 fL (79-100) Mean Corpuscular Hemoglobin 17 pg (25-35) Mean Corpuscular Hemoglobin Concent 29 g/dL (31-37) Red Cell Distribution Width 29.9 % (11.5-14.5) Platelet Count 424 x10^3/uL (140-400) Neutrophils (%) (Auto) 73 % (31-73) Lymphocytes (%) (Auto) 17 % (24-48) Monocytes (%) (Auto) 7 % (0-9) Eosinophils (%) (Auto) 2 % (0-3) Basophils (%) (Auto) 1 % (0-3) Neutrophils # (Auto) 7.5 x10^3uL (1.8-7.7) Lymphocytes # (Auto) 1.8 x10^3/uL (1.0-4.8) Monocytes # (Auto) 0.7 x10^3/uL (0.0-1.1) Eosinophils # (Auto) 0.2 x10^3/uL (0.0-0.7) Basophils # (Auto) 0.1 x10^3/uL (0.0-0.2) Sodium Level 135 mmol/L (136-145) Potassium Level 3.8 mmol/L (3.5-5.1) Chloride Level 99 mmol/L (98-107) Carbon Dioxide Level 29 mmol/L (21-32) Anion Gap 7 (6-14) Blood Urea Nitrogen 8 mg/dL (7-20) Creatinine 0.6 mg/dL (0.6-1.0) Estimated GFR (Cockcroft-Gault) 107.6 Glucose Level 202 mg/dL (70-99) Calcium Level 8.4 mg/dL (8.5-10.1) Magnesium Level 1.8 mg/dL (1.8-2.4) Triglycerides Level 88 mg/dL (0-150) Cholesterol Level 79 mg/dL (0-200) LDL Cholesterol, Calculated 44 mg/dL (0-100) VLDL Cholesterol, Calculated 18 mg/dL (0-40) Non-HDL Cholesterol Calculated 62 mg/dL (0-129) HDL Cholesterol 17 mg/dL (40-60) Cholesterol/HDL Ratio 4.6 Thyroid Stimulating Hormone (TSH) 51.298 uIU/mL (0.358-3.74) Glucose (Fingerstick) 169 mg/dL (70-99) Review of Systems Review of Systems no fever, chills, sob or chest pain Comment Review of Relevant I have reviewed the following items sophia (where applicable) has been applied. Labs Laboratory Tests Test 02/03/17 15:15 02/03/17 16:10 02/03/17 16:35 02/03/17 22:45 White Blood Count 9.9 x10^3/uL (4.0-11.0) 10.5 x10^3/uL (4.0-11.0) Red Blood Count 4.08 x10^6/uL (3.50-5.40) 4.42 x10^6/uL (3.50-5.40) Hemoglobin 5.5 g/dL (12.0-15.5) 7.5 g/dL (12.0-15.5) Hematocrit 21.6 % (36.0-47.0) 25.7 % (36.0-47.0) Mean Corpuscular Volume 53 fL (79-100) 58 fL (79-100) Mean Corpuscular Hemoglobin 14 pg (25-35) 17 pg (25-35) Mean Corpuscular Hemoglobin Concent 26 g/dL (31-37) 29 g/dL (31-37) Red Cell Distribution Width 21.6 % (11.5-14.5) 30.3 % (11.5-14.5) Platelet Count 481 x10^3/uL (140-400) 464 x10^3/uL (140-400) Neutrophils (%) (Auto) 75 % (31-73) Lymphocytes (%) (Auto) 16 % (24-48) Monocytes (%) (Auto) 7 % (0-9) Eosinophils (%) (Auto) 2 % (0-3) Basophils (%) (Auto) 1 % (0-3) Neutrophils # (Auto) 7.4 x10^3uL (1.8-7.7) Lymphocytes # (Auto) 1.6 x10^3/uL (1.0-4.8) Monocytes # (Auto) 0.6 x10^3/uL (0.0-1.1) Eosinophils # (Auto) 0.2 x10^3/uL (0.0-0.7) Basophils # (Auto) 0.1 x10^3/uL (0.0-0.2) Platelet Estimate Increased (ADEQUATE) Polychromasia Slight Hypochromasia Marked Anisocytosis Mod Microcytosis Marked Sodium Level 134 mmol/L (136-145) Potassium Level 4.0 mmol/L (3.5-5.1) Chloride Level 100 mmol/L (98-107) Carbon Dioxide Level 26 mmol/L (21-32) Anion Gap 8 (6-14) Blood Urea Nitrogen 12 mg/dL (7-20) Creatinine 0.7 mg/dL (0.6-1.0) Estimated GFR (Cockcroft-Gault) 90.1 BUN/Creatinine Ratio 17 (6-20) Glucose Level 208 mg/dL (70-99) Calcium Level 8.6 mg/dL (8.5-10.1) Total Bilirubin 0.6 mg/dL (0.2-1.0) Aspartate Amino Transf (AST/SGOT) 37 U/L (15-37) Alanine Aminotransferase (ALT/SGPT) 18 U/L (14-59) Alkaline Phosphatase 115 U/L (46-116) Troponin I Quantitative < 0.017 ng/mL (0.000-0.055) GA-Twh-O-Type Natriuretic Peptide 79 pg/mL (0-124) Total Protein 8.4 g/dL (6.4-8.2) Albumin 3.6 g/dL (3.4-5.0) Albumin/Globulin Ratio 0.8 (1.0-1.7) Lipase 216 U/L (73-393) Urine Collection Type Unknown Urine Color Yellow Urine Clarity Clear Urine pH 6.5 Urine Specific [place] 1.015 Urine Protein Negative mg/dL (NEG-TRACE) Urine Glucose (UA) Negative mg/dL (NEG) Urine Ketones (Stick) Negative mg/dL (NEG) Urine Blood Negative (NEG) Urine Nitrite Negative (NEG) Urine Bilirubin Negative (NEG) Urine Urobilinogen Dipstick 1.0 mg/dL (0.2 mg/dL) Urine Leukocyte Esterase Moderate (NEG) Urine RBC 0 /HPF (0-2) Urine WBC 5-10 /HPF (0-4) Urine Squamous Epithelial Cells Few /LPF Urine Bacteria Few /HPF (0-FEW) Urine Mucus Slight /LPF Iron Level 10 ug/dL (50-170) Total Iron Binding Capacity 463 ug/dL (250-450) Iron Saturation 2 % (15-34) Free Thyroxine 0.76 ng/dL (0.76-1.46) Free Triiodothyronine (T3) pg/mL 1.91 pg/mL (2.18-3.98) Test 02/04/17 04:30 02/04/17 11:39 White Blood Count 10.2 x10^3/uL (4.0-11.0) Red Blood Count 4.31 x10^6/uL (3.50-5.40) Hemoglobin 7.4 g/dL (12.0-15.5) Hematocrit 25.1 % (36.0-47.0) Mean Corpuscular Volume 58 fL (79-100) Mean Corpuscular Hemoglobin 17 pg (25-35) Mean Corpuscular Hemoglobin Concent 29 g/dL (31-37) Red Cell Distribution Width 29.9 % (11.5-14.5) Platelet Count 424 x10^3/uL (140-400) Neutrophils (%) (Auto) 73 % (31-73) Lymphocytes (%) (Auto) 17 % (24-48) Monocytes (%) (Auto) 7 % (0-9) Eosinophils (%) (Auto) 2 % (0-3) Basophils (%) (Auto) 1 % (0-3) Neutrophils # (Auto) 7.5 x10^3uL (1.8-7.7) Lymphocytes # (Auto) 1.8 x10^3/uL (1.0-4.8) Monocytes # (Auto) 0.7 x10^3/uL (0.0-1.1) Eosinophils # (Auto) 0.2 x10^3/uL (0.0-0.7) Basophils # (Auto) 0.1 x10^3/uL (0.0-0.2) Sodium Level 135 mmol/L (136-145) Potassium Level 3.8 mmol/L (3.5-5.1) Chloride Level 99 mmol/L (98-107) Carbon Dioxide Level 29 mmol/L (21-32) Anion Gap 7 (6-14) Blood Urea Nitrogen 8 mg/dL (7-20) Creatinine 0.6 mg/dL (0.6-1.0) Estimated GFR (Cockcroft-Gault) 107.6 Glucose Level 202 mg/dL (70-99) Calcium Level 8.4 mg/dL (8.5-10.1) Magnesium Level 1.8 mg/dL (1.8-2.4) Triglycerides Level 88 mg/dL (0-150) Cholesterol Level 79 mg/dL (0-200) LDL Cholesterol, Calculated 44 mg/dL (0-100) VLDL Cholesterol, Calculated 18 mg/dL (0-40) Non-HDL Cholesterol Calculated 62 mg/dL (0-129) HDL Cholesterol 17 mg/dL (40-60) Cholesterol/HDL Ratio 4.6 Thyroid Stimulating Hormone (TSH) 51.298 uIU/mL (0.358-3.74) Glucose (Fingerstick) 169 mg/dL (70-99) Laboratory Tests Test 02/03/17 15:15 02/03/17 16:10 02/03/17 16:35 02/03/17 22:45 White Blood Count 9.9 x10^3/uL (4.0-11.0) 10.5 x10^3/uL (4.0-11.0) Red Blood Count 4.08 x10^6/uL (3.50-5.40) 4.42 x10^6/uL (3.50-5.40) Hemoglobin 5.5 g/dL (12.0-15.5) 7.5 g/dL (12.0-15.5) Hematocrit 21.6 % (36.0-47.0) 25.7 % (36.0-47.0) Mean Corpuscular Volume 53 fL (79-100) 58 fL (79-100) Mean Corpuscular Hemoglobin 14 pg (25-35) 17 pg (25-35) Mean Corpuscular Hemoglobin Concent 26 g/dL (31-37) 29 g/dL (31-37) Red Cell Distribution Width 21.6 % (11.5-14.5) 30.3 % (11.5-14.5) Platelet Count 481 x10^3/uL (140-400) 464 x10^3/uL (140-400) Neutrophils (%) (Auto) 75 % (31-73) Lymphocytes (%) (Auto) 16 % (24-48) Monocytes (%) (Auto) 7 % (0-9) Eosinophils (%) (Auto) 2 % (0-3) Basophils (%) (Auto) 1 % (0-3) Neutrophils # (Auto) 7.4 x10^3uL (1.8-7.7) Lymphocytes # (Auto) 1.6 x10^3/uL (1.0-4.8) Monocytes # (Auto) 0.6 x10^3/uL (0.0-1.1) Eosinophils # (Auto) 0.2 x10^3/uL (0.0-0.7) Basophils # (Auto) 0.1 x10^3/uL (0.0-0.2) Platelet Estimate Increased (ADEQUATE) Polychromasia Slight Hypochromasia Marked Anisocytosis Mod Microcytosis Marked Sodium Level 134 mmol/L (136-145) Potassium Level 4.0 mmol/L (3.5-5.1) Chloride Level 100 mmol/L (98-107) Carbon Dioxide Level 26 mmol/L (21-32) Anion Gap 8 (6-14) Blood Urea Nitrogen 12 mg/dL (7-20) Creatinine 0.7 mg/dL (0.6-1.0) Estimated GFR (Cockcroft-Gault) 90.1 BUN/Creatinine Ratio 17 (6-20) Glucose Level 208 mg/dL (70-99) Calcium Level 8.6 mg/dL (8.5-10.1) Total Bilirubin 0.6 mg/dL (0.2-1.0) Aspartate Amino Transf (AST/SGOT) 37 U/L (15-37) Alanine Aminotransferase (ALT/SGPT) 18 U/L (14-59) Alkaline Phosphatase 115 U/L (46-116) Troponin I Quantitative < 0.017 ng/mL (0.000-0.055) SV-Cuf-C-Type Natriuretic Peptide 79 pg/mL (0-124) Total Protein 8.4 g/dL (6.4-8.2) Albumin 3.6 g/dL (3.4-5.0) Albumin/Globulin Ratio 0.8 (1.0-1.7) Lipase 216 U/L (73-393) Urine Collection Type Unknown Urine Color Yellow Urine Clarity Clear Urine pH 6.5 Urine Specific [place] 1.015 Urine Protein Negative mg/dL (NEG-TRACE) Urine Glucose (UA) Negative mg/dL (NEG) Urine Ketones (Stick) Negative mg/dL (NEG) Urine Blood Negative (NEG) Urine Nitrite Negative (NEG) Urine Bilirubin Negative (NEG) Urine Urobilinogen Dipstick 1.0 mg/dL (0.2 mg/dL) Urine Leukocyte Esterase Moderate (NEG) Urine RBC 0 /HPF (0-2) Urine WBC 5-10 /HPF (0-4) Urine Squamous Epithelial Cells Few /LPF Urine Bacteria Few /HPF (0-FEW) Urine Mucus Slight /LPF Iron Level 10 ug/dL (50-170) Total Iron Binding Capacity 463 ug/dL (250-450) Iron Saturation 2 % (15-34) Free Thyroxine 0.76 ng/dL (0.76-1.46) Free Triiodothyronine (T3) pg/mL 1.91 pg/mL (2.18-3.98) Test 02/04/17 04:30 02/04/17 11:39 White Blood Count 10.2 x10^3/uL (4.0-11.0) Red Blood Count 4.31 x10^6/uL (3.50-5.40) Hemoglobin 7.4 g/dL (12.0-15.5) Hematocrit 25.1 % (36.0-47.0) Mean Corpuscular Volume 58 fL (79-100) Mean Corpuscular Hemoglobin 17 pg (25-35) Mean Corpuscular Hemoglobin Concent 29 g/dL (31-37) Red Cell Distribution Width 29.9 % (11.5-14.5) Platelet Count 424 x10^3/uL (140-400) Neutrophils (%) (Auto) 73 % (31-73) Lymphocytes (%) (Auto) 17 % (24-48) Monocytes (%) (Auto) 7 % (0-9) Eosinophils (%) (Auto) 2 % (0-3) Basophils (%) (Auto) 1 % (0-3) Neutrophils # (Auto) 7.5 x10^3uL (1.8-7.7) Lymphocytes # (Auto) 1.8 x10^3/uL (1.0-4.8) Monocytes # (Auto) 0.7 x10^3/uL (0.0-1.1) Eosinophils # (Auto) 0.2 x10^3/uL (0.0-0.7) Basophils # (Auto) 0.1 x10^3/uL (0.0-0.2) Sodium Level 135 mmol/L (136-145) Potassium Level 3.8 mmol/L (3.5-5.1) Chloride Level 99 mmol/L (98-107) Carbon Dioxide Level 29 mmol/L (21-32) Anion Gap 7 (6-14) Blood Urea Nitrogen 8 mg/dL (7-20) Creatinine 0.6 mg/dL (0.6-1.0) Estimated GFR (Cockcroft-Gault) 107.6 Glucose Level 202 mg/dL (70-99) Calcium Level 8.4 mg/dL (8.5-10.1) Magnesium Level 1.8 mg/dL (1.8-2.4) Triglycerides Level 88 mg/dL (0-150) Cholesterol Level 79 mg/dL (0-200) LDL Cholesterol, Calculated 44 mg/dL (0-100) VLDL Cholesterol, Calculated 18 mg/dL (0-40) Non-HDL Cholesterol Calculated 62 mg/dL (0-129) HDL Cholesterol 17 mg/dL (40-60) Cholesterol/HDL Ratio 4.6 Thyroid Stimulating Hormone (TSH) 51.298 uIU/mL (0.358-3.74) Glucose (Fingerstick) 169 mg/dL (70-99) Medications Current Medications Furosemide (Lasix) 40 mg 1X ONCE IVP Last administered on 02/03/17 17:18; Start 02/03/17 at 16:45; Stop 02/03/17 at 16:46; Status DC Ondansetron HCl (Zofran) 4 mg PRN Q6HRS PRN IV NAUSEA/VOMITING Last administered on 02/03/17 17:17; Start 02/03/17 at 16:45 Prochlorperazine Edisylate (Compazine) 10 mg PRN Q6HRS PRN IV NAUSEA/VOMITING; Start 02/03/17 at 16:45 Oxycodone HCl (Roxicodone) 5 mg PRN Q3HRS PRN PO BREAKTHROUGH PAIN Last administered on 02/04/17 08:26; Start 02/03/17 at 16:45 Morphine Sulfate 1 mg PRN Q1HR PRN IV PAIN Last administered on 02/03/17 22:13 ; Start 02/03/17 at 16:45 Acetaminophen (Tylenol) 650 mg PRN Q6HRS PRN PO Headaches, Temp > 101.5F; Start 02/03/17 at 16:45 Levothyroxine Sodium (Synthroid) 150 mcg DAILY07 PO ; Start 02/03/17 at 17:00; Status Cancel Labetalol HCl (Normodyne) 10 mg PRN Q2HR PRN IVP 160/100; Start 02/03/17 at 16: 45 Levothyroxine Sodium (Synthroid) 150 mcg DAILY07 PO Last administered on 07:55; Start 02/03/17 at 17:00 Trimethoprim/ Sulfamethoxazole (Bactrim Ds) 1 tab BID PO Last administered on 08:26; Start 02/03/17 at 20:00 Furosemide (Lasix) 40 mg DAILY IVP Last administered on 02/04/17 08:25; Start 02/04/17 at 09:00; Stop 02/04/17 at 10:03; Status DC Ferrous Sulfate (Feosol) 325 mg DAILYWBKFT PO Last administered on 02/04/17 08 :25; Start 02/03/17 at 20:15 Insulin Aspart (NovoLOG) 0-5 UNITS TIDWMEALS SQ Last administered on 02/04/17 11:43; Start 02/04/17 at 12:00 Dextrose (Dextrose 50%-Water Syringe) 12.5 gm PRN Q15MIN PRN IV SEE COMMENTS; Start 02/04/17 at 09:30 Lisinopril (Prinivil) 20 mg DAILY PO Last administered on 02/04/17 11:41; Start 02/04/17 at 10:00 Hydrochlorothiazide (Microzide) 12.5 mg DAILY PO Last administered on 11:40; Start 02/04/17 at 10:00 Vitals/I & O Vital Sign - Last 24 Hours 02/03/17 02/03/17 02/03/17 02/03/17 15:45 18:00 18:00 18:20 Temp 98.5 98.9 98.9 98.5 98.9 98.9 Pulse 96 87 86 Resp 18 22 22 B/P (MAP) 196/93 (127) 148/88 (108) 148/88 Pulse Ox 100 97 O2 Delivery Room Air Room Air Room Air 02/03/17 02/03/17 02/03/17 02/03/17 18:35 19:00 19:15 19:15 Temp 98.4 98.4 Pulse 85 86 84 84 Resp 22 16 21 21 B/P (MAP) 145/82 180/97 (124) 171/97 (121) 171/97 Pulse Ox 98 97 O2 Delivery Room Air Room Air 02/03/17 02/03/17 02/03/17 02/03/17 19:30 19:30 19:45 20:00 Pulse 84 84 84 88 Resp 22 22 27 21 B/P (MAP) 180/97 (124) 180/97 168/94 (118) 128/82 (97) Pulse Ox 97 98 97 O2 Delivery Room Air Room Air Room Air 02/03/17 02/03/17 02/03/17 02/03/17 20:00 20:00 20:15 20:30 Temp 98.3 98.9 98.3 98.9 Pulse 82 84 86 Resp 29 25 28 B/P (MAP) 170/102 (124) 143/80 (101) 137/72 (93) Pulse Ox 97 97 99 O2 Delivery Room Air Room Air Room Air Room Air 02/03/17 02/03/17 02/03/17 02/03/17 20:45 20:45 21:00 21:00 Temp 98.4 98.9 98.9 98.4 98.9 98.9 Pulse 86 86 82 82 Resp 24 20 18 24 B/P (MAP) 137/72 117/75 (89) 117/75 142/84 (103) Pulse Ox 96 98 O2 Delivery Room Air Room Air 02/03/17 02/03/17 02/03/17 02/03/17 21:15 21:29 21:30 21:45 Pulse 82 80 80 Resp 24 16 21 27 B/P (MAP) 142/84 152/86 (108) 162/82 Pulse Ox 94 96 O2 Delivery Room Air Room Air 02/03/17 02/03/17 02/03/17 02/03/17 22:00 22:00 22:13 22:15 Temp 98.4 98.4 Pulse 82 82 84 Resp 22 24 B/P (MAP) 174/100 174/100 144/88 Pulse Ox 96 O2 Delivery Room Air 02/03/17 02/03/17 02/03/17 02/04/17 22:15 22:29 23:00 00:00 Temp 98.4 98.4 Pulse 82 82 Resp 25 24 19 B/P (MAP) 144/88 140/86 (104) Pulse Ox 96 94 O2 Delivery Room Air Room Air Room Air 02/04/17 02/04/17 02/04/17 02/04/17 00:00 01:00 02:00 03:00 Temp 98.1 98.1 Pulse 81 80 80 76 Resp 13 B/P (MAP) 138/83 (101) 167/80 (109) 154/86 (108) 156/95 (115) Pulse Ox 95 96 95 95 O2 Delivery Room Air Room Air Room Air Room Air 02/04/17 02/04/17 02/04/17 02/04/17 04:00 04:00 05:00 06:00 Temp 97.9 97.9 Pulse 88 84 95 Resp 16 B/P (MAP) 150/79 (102) 165/95 (118) 134/89 (104) Pulse Ox 95 94 99 O2 Delivery Room Air Room Air Room Air Room Air 02/04/17 02/04/17 02/04/17 02/04/17 07:00 08:00 08:26 09:00 Temp 99.3 99.3 Pulse 58 84 84 Resp B/P (MAP) 143/63 (89) 133/77 (95) 138/85 (102) Pulse Ox 97 98 98 99 O2 Delivery Room Air Room Air Room Air Room Air 02/04/17 02/04/17 02/04/17 02/04/17 09:26 10:00 11:00 11:41 Pulse 78 78 79 Resp 26 37 31 B/P (MAP) 134/83 (100) 134/83 Pulse Ox 99 95 96 O2 Delivery Room Air Room Air Room Air 02/04/17 02/04/17 12:00 12:00 Temp 97.6 97.6 Pulse 74 Resp 28 B/P (MAP) 132/77 (95) Pulse Ox 100 O2 Delivery Room Air Room Air Intake and Output 02/03/17 02/03/17 02/04/17 15:00 23:00 07:00 Intake Total 914 ml 700 ml Output Total 1550 ml 700 ml Balance -636 ml 0 ml EARL CHAVEZ MD Feb 04, 2017 13:43
[2017-02-04] MEDS ORDERED: ONDANSETRON PF 4 MG/2 ML VIAL. IV PRN (13:45)
[2017-02-05 03:00] VITALS: BP 107/65
[2017-02-05 04:53] LABS: BASO # 0.1 x10^3/uL (0.0-0.2); BASO % 1 % (0-3); EOS % 3 % (0-3); HEMATOCRIT 28.1 % (36.0-47.0); LYMPH # 1.6 x10^3/uL (1.0-4.8); LYMPH % 13 % (24-48); MEAN CORPUSCULAR HEMOGLOBIN 16 pg (25-35); MEAN CORPUSCULAR HGB CONC 29 g/dL (31-37); MEAN CORPUSCULAR VOLUME 58 fL (79-100); MONO % 5 % (0-9); NEUT % 78 % (31-73); PLATELET COUNT 486 x10^3/uL (140-400); RED BLOOD COUNT 4.88 x10^6/uL (3.50-5.40); RED CELL DISTRIBUTION WIDTH 29.7 % (11.5-14.5); WHITE BLOOD COUNT 12.2 x10^3/uL (4.0-11.0)
[2017-02-05 04:59] LABS: CALCIUM 8.4 mg/dL (8.5-10.1); CREATININE 0.6 mg/dL (0.6-1.0); GFR 107.6; POTASSIUM 4.2 mmol/L (3.5-5.1)
[2017-02-05] MEDS: LEVOTHYROXINE 150 MCG TABLET PO SCH (05:46)
[2017-02-05 07:00] VITALS: BP 116/69
[2017-02-05] MEDS: LISINOPRIL 20 MG TABLET PO SCH (09:34)
[2017-02-05] MEDS: FERROUS SULFATE 325 MG TABLET. PO SCH (09:34)
[2017-02-05] MEDS: hydroCHLOROthiazide 12.5 MG CAPSULE PO SCH (09:34)
[2017-02-05] MEDS: SMZ/TMP 800/160MG TABLET. PO SCH (09:35)
[2017-02-05] MEDS: INSULIN ASPART 300 UNITS/3 ML INSULN.PEN SQ SCH ×2 (09:39→12:07)
[2017-02-05 11:00] VITALS: BP 128/74
[2017-02-05] MEDS ORDERED: LISI-334 PO (11:08)
[2017-02-05] MEDS ORDERED: HYDR12.58 PO (11:08)
[2017-02-05] MEDS ORDERED: FERR-26 PO (11:08)
[2017-02-05] MEDS ORDERED: LEVO150T PO (11:08)
--- NOTE | 2017-02-05 11:11 | PDOC3 ---
Discharge Summary Visit Information Date of Admission: Feb 03, 2017 Date of Discharge: Feb 05, 2017 Admitting Diagnosis Comment: 1. Severe hypothyroidism with no coma (TSH 25) 2. Plus 3-4 pitting edema 3. SOA, Pulm congestion sec to # 1 4. Severe microcytic anemia (hgb 5) 5. Emilie menopausal 6. Obesity 7. UTI Brief Hospital Course Allergies Allergies Coded Allergies Type Severity Reaction Last Updated Verified No Known Drug Allergies 02/03/17 No Vital Signs Vital Signs Date Time Temp Pulse Resp B/P (MAP) Pulse Ox O2 Delivery O2 Flow Rate FiO2 02/05/17 09:34 91 116/69 02/05/17 08:00 Room Air 02/05/17 07:00 97.9 20 99 97.9 Lab Results Laboratory Tests Test 02/03/17 15:15 02/03/17 16:10 02/03/17 16:35 02/03/17 18:30 White Blood Count 9.9 x10^3/uL (4.0-11.0) Red Blood Count 4.08 x10^6/uL (3.50-5.40) Hemoglobin 5.5 g/dL (12.0-15.5) Hematocrit 21.6 % (36.0-47.0) Mean Corpuscular Volume 53 fL (79-100) Mean Corpuscular Hemoglobin 14 pg (25-35) Mean Corpuscular Hemoglobin Concent 26 g/dL (31-37) Red Cell Distribution Width 21.6 % (11.5-14.5) Platelet Count 481 x10^3/uL (140-400) Neutrophils (%) (Auto) 75 % (31-73) Lymphocytes (%) (Auto) 16 % (24-48) Monocytes (%) (Auto) 7 % (0-9) Eosinophils (%) (Auto) 2 % (0-3) Basophils (%) (Auto) 1 % (0-3) Neutrophils # (Auto) 7.4 x10^3uL (1.8-7.7) Lymphocytes # (Auto) 1.6 x10^3/uL (1.0-4.8) Monocytes # (Auto) 0.6 x10^3/uL (0.0-1.1) Eosinophils # (Auto) 0.2 x10^3/uL (0.0-0.7) Basophils # (Auto) 0.1 x10^3/uL (0.0-0.2) Platelet Estimate Increased (ADEQUATE) Polychromasia Slight Hypochromasia Marked Anisocytosis Mod Microcytosis Marked Sodium Level 134 mmol/L (136-145) Potassium Level 4.0 mmol/L (3.5-5.1) Chloride Level 100 mmol/L (98-107) Carbon Dioxide Level 26 mmol/L (21-32) Anion Gap 8 (6-14) Blood Urea Nitrogen 12 mg/dL (7-20) Creatinine 0.7 mg/dL (0.6-1.0) Estimated GFR (Cockcroft-Gault) 90.1 BUN/Creatinine Ratio 17 (6-20) Glucose Level 208 mg/dL (70-99) Calcium Level 8.6 mg/dL (8.5-10.1) Total Bilirubin 0.6 mg/dL (0.2-1.0) Aspartate Amino Transf (AST/SGOT) 37 U/L (15-37) Alanine Aminotransferase (ALT/SGPT) 18 U/L (14-59) Alkaline Phosphatase 115 U/L (46-116) Troponin I Quantitative < 0.017 ng/mL (0.000-0.055) YZ-Ioo-T-Type Natriuretic Peptide 79 pg/mL (0-124) Total Protein 8.4 g/dL (6.4-8.2) Albumin 3.6 g/dL (3.4-5.0) Albumin/Globulin Ratio 0.8 (1.0-1.7) Lipase 216 U/L (73-393) Urine Collection Type Unknown Urine Color Yellow Urine Clarity Clear Urine pH 6.5 Urine Specific [place] 1.015 Urine Protein Negative mg/dL (NEG-TRACE) Urine Glucose (UA) Negative mg/dL (NEG) Urine Ketones (Stick) Negative mg/dL (NEG) Urine Blood Negative (NEG) Urine Nitrite Negative (NEG) Urine Bilirubin Negative (NEG) Urine Urobilinogen Dipstick 1.0 mg/dL (0.2 mg/dL) Urine Leukocyte Esterase Moderate (NEG) Urine RBC 0 /HPF (0-2) Urine WBC 5-10 /HPF (0-4) Urine Squamous Epithelial Cells Few /LPF Urine Bacteria Few /HPF (0-FEW) Urine Mucus Slight /LPF Iron Level 10 ug/dL (50-170) Total Iron Binding Capacity 463 ug/dL (250-450) Iron Saturation 2 % (15-34) Free Thyroxine 0.76 ng/dL (0.76-1.46) Free Triiodothyronine (T3) pg/mL 1.91 pg/mL (2.18-3.98) Nasal Screen MRSA (PCR) Negative (Negative) Test 02/03/17 22:45 02/04/17 04:30 02/04/17 11:39 02/04/17 17:21 White Blood Count 10.5 x10^3/uL (4.0-11.0) 10.2 x10^3/uL (4.0-11.0) Red Blood Count 4.42 x10^6/uL (3.50-5.40) 4.31 x10^6/uL (3.50-5.40) Hemoglobin 7.5 g/dL (12.0-15.5) 7.4 g/dL (12.0-15.5) Hematocrit 25.7 % (36.0-47.0) 25.1 % (36.0-47.0) Mean Corpuscular Volume 58 fL (79-100) 58 fL (79-100) Mean Corpuscular Hemoglobin 17 pg (25-35) 17 pg (25-35) Mean Corpuscular Hemoglobin Concent 29 g/dL (31-37) 29 g/dL (31-37) Red Cell Distribution Width 30.3 % (11.5-14.5) 29.9 % (11.5-14.5) Platelet Count 464 x10^3/uL (140-400) 424 x10^3/uL (140-400) Neutrophils (%) (Auto) 73 % (31-73) Lymphocytes (%) (Auto) 17 % (24-48) Monocytes (%) (Auto) 7 % (0-9) Eosinophils (%) (Auto) 2 % (0-3) Basophils (%) (Auto) 1 % (0-3) Neutrophils # (Auto) 7.5 x10^3uL (1.8-7.7) Lymphocytes # (Auto) 1.8 x10^3/uL (1.0-4.8) Monocytes # (Auto) 0.7 x10^3/uL (0.0-1.1) Eosinophils # (Auto) 0.2 x10^3/uL (0.0-0.7) Basophils # (Auto) 0.1 x10^3/uL (0.0-0.2) Sodium Level 135 mmol/L (136-145) Potassium Level 3.8 mmol/L (3.5-5.1) Chloride Level 99 mmol/L (98-107) Carbon Dioxide Level 29 mmol/L (21-32) Anion Gap 7 (6-14) Blood Urea Nitrogen 8 mg/dL (7-20) Creatinine 0.6 mg/dL (0.6-1.0) Estimated GFR (Cockcroft-Gault) 107.6 Glucose Level 202 mg/dL (70-99) Calcium Level 8.4 mg/dL (8.5-10.1) Magnesium Level 1.8 mg/dL (1.8-2.4) Triglycerides Level 88 mg/dL (0-150) Cholesterol Level 79 mg/dL (0-200) LDL Cholesterol, Calculated 44 mg/dL (0-100) VLDL Cholesterol, Calculated 18 mg/dL (0-40) Non-HDL Cholesterol Calculated 62 mg/dL (0-129) HDL Cholesterol 17 mg/dL (40-60) Cholesterol/HDL Ratio 4.6 Thyroid Stimulating Hormone (TSH) 51.298 uIU/mL (0.358-3.74) Glucose (Fingerstick) 169 mg/dL (70-99) 233 mg/dL (70-99) Test 02/04/17 21:04 02/05/17 04:14 02/05/17 07:57 Glucose (Fingerstick) 185 mg/dL (70-99) 199 mg/dL (70-99) White Blood Count 12.2 x10^3/uL (4.0-11.0) Red Blood Count 4.88 x10^6/uL (3.50-5.40) Hemoglobin 8.0 g/dL (12.0-15.5) Hematocrit 28.1 % (36.0-47.0) Mean Corpuscular Volume 58 fL (79-100) Mean Corpuscular Hemoglobin 16 pg (25-35) Mean Corpuscular Hemoglobin Concent 29 g/dL (31-37) Red Cell Distribution Width 29.7 % (11.5-14.5) Platelet Count 486 x10^3/uL (140-400) Neutrophils (%) (Auto) 78 % (31-73) Lymphocytes (%) (Auto) 13 % (24-48) Monocytes (%) (Auto) 5 % (0-9) Eosinophils (%) (Auto) 3 % (0-3) Basophils (%) (Auto) 1 % (0-3) Neutrophils # (Auto) 9.5 x10^3uL (1.8-7.7) Lymphocytes # (Auto) 1.6 x10^3/uL (1.0-4.8) Monocytes # (Auto) 0.6 x10^3/uL (0.0-1.1) Eosinophils # (Auto) 0.3 x10^3/uL (0.0-0.7) Basophils # (Auto) 0.1 x10^3/uL (0.0-0.2) Sodium Level 136 mmol/L (136-145) Potassium Level 4.2 mmol/L (3.5-5.1) Chloride Level 99 mmol/L (98-107) Carbon Dioxide Level 33 mmol/L (21-32) Anion Gap 4 (6-14) Blood Urea Nitrogen 11 mg/dL (7-20) Creatinine 0.6 mg/dL (0.6-1.0) Estimated GFR (Cockcroft-Gault) 107.6 Glucose Level 158 mg/dL (70-99) Calcium Level 8.4 mg/dL (8.5-10.1) Laboratory Tests Test 02/04/17 11:39 02/04/17 17:21 02/04/17 21:04 02/05/17 04:14 Glucose (Fingerstick) 169 mg/dL (70-99) 233 mg/dL (70-99) 185 mg/dL (70-99) White Blood Count 12.2 x10^3/uL (4.0-11.0) Red Blood Count 4.88 x10^6/uL (3.50-5.40) Hemoglobin 8.0 g/dL (12.0-15.5) Hematocrit 28.1 % (36.0-47.0) Mean Corpuscular Volume 58 fL (79-100) Mean Corpuscular Hemoglobin 16 pg (25-35) Mean Corpuscular Hemoglobin Concent 29 g/dL (31-37) Red Cell Distribution Width 29.7 % (11.5-14.5) Platelet Count 486 x10^3/uL (140-400) Neutrophils (%) (Auto) 78 % (31-73) Lymphocytes (%) (Auto) 13 % (24-48) Monocytes (%) (Auto) 5 % (0-9) Eosinophils (%) (Auto) 3 % (0-3) Basophils (%) (Auto) 1 % (0-3) Neutrophils # (Auto) 9.5 x10^3uL (1.8-7.7) Lymphocytes # (Auto) 1.6 x10^3/uL (1.0-4.8) Monocytes # (Auto) 0.6 x10^3/uL (0.0-1.1) Eosinophils # (Auto) 0.3 x10^3/uL (0.0-0.7) Basophils # (Auto) 0.1 x10^3/uL (0.0-0.2) Sodium Level 136 mmol/L (136-145) Potassium Level 4.2 mmol/L (3.5-5.1) Chloride Level 99 mmol/L (98-107) Carbon Dioxide Level 33 mmol/L (21-32) Anion Gap 4 (6-14) Blood Urea Nitrogen 11 mg/dL (7-20) Creatinine 0.6 mg/dL (0.6-1.0) Estimated GFR (Cockcroft-Gault) 107.6 Glucose Level 158 mg/dL (70-99) Calcium Level 8.4 mg/dL (8.5-10.1) Test 02/05/17 07:57 Glucose (Fingerstick) 199 mg/dL (70-99) Brief Hospital Course Ms. 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 HGb 5,.5, MCV 50s, spotty menses only (emilie menopausal), denies black tarry stool or hematochezia Will get a dose of lasix at ER THESE labs and PE findings are all from SEVERE HYPOTHYRODISM, and i did educate and certified alcohol drug counselor > 30 mins on phone alone, Discussed importance of taking meds and having levels rechecked in 4 weeks,. Luckily no coma, will give first dose of PO synthroid now weight based, transfuse after iron panel obtained and agree with ICU. COnt antibiotics for UTI Dw COST CLERK and ER MD, COST CLERK at bedside and ammonia refrigeration worker COURSE: Got pRBC, started on synthroid 150 mcg based on weight, consulted cards, - diuresed. Echo good, NEw meds are synthroid 150, lisiniopril 20 and hCTZ 12, .5 with ferrous sulfate 325 BID HAs ff up appt [place] in 2 days time RPT TSH AND T3 T4 In 4 weeks pls HEAVY EDUCATION AND INSTRUCTIONS DONE To finish bactrim course of uTI - UA clean here Discharge Information Condition at Discharge: Improved, Stable Disposition/Orders: D/C to Home CHRISTOPHER PERKINS MD Feb 05, 2017 11:11
--- NOTE | 2017-02-05 14:44 | PDOC ---
PROGRESS NOTES Subjective Subjective The patient looks and feels better today. Objective Objective Vital Signs Date Time Temp Pulse Resp B/P (MAP) Pulse Ox O2 Delivery O2 Flow Rate FiO2 02/05/17 11:00 97.9 90 20 128/74 (92) 99 Room Air 97.9 Intake and Output 02/05/17 07:00 Intake Total 3280 ml Output Total 2600 ml Balance 680 ml Intake Oral 3280 ml Output Urine Total 2600 ml Physical Exam Abdomen: Normal bowel sounds Heart: Regular rate General: No acute distress Lungs: Clear to auscultation Assessment Assessment 1. Severe Anemia: likely from hypothyroidism with iron deficiency. Treatment as above. 2. High output failure: due to anemia initially at 5.5 and hypothyroid. Resolved. 3. Hypothyroidism: failed to take replacement w/u per PCP 4. UTI 5. DM2 6. Accelerated HTN. Also improved. Comment Review of Relevant I have reviewed the following items sophia (where applicable) has been applied. Labs Laboratory Tests Test 02/03/17 15:15 02/03/17 16:10 02/03/17 16:35 02/03/17 18:30 White Blood Count 9.9 x10^3/uL (4.0-11.0) Red Blood Count 4.08 x10^6/uL (3.50-5.40) Hemoglobin 5.5 g/dL (12.0-15.5) Hematocrit 21.6 % (36.0-47.0) Mean Corpuscular Volume 53 fL (79-100) Mean Corpuscular Hemoglobin 14 pg (25-35) Mean Corpuscular Hemoglobin Concent 26 g/dL (31-37) Red Cell Distribution Width 21.6 % (11.5-14.5) Platelet Count 481 x10^3/uL (140-400) Neutrophils (%) (Auto) 75 % (31-73) Lymphocytes (%) (Auto) 16 % (24-48) Monocytes (%) (Auto) 7 % (0-9) Eosinophils (%) (Auto) 2 % (0-3) Basophils (%) (Auto) 1 % (0-3) Neutrophils # (Auto) 7.4 x10^3uL (1.8-7.7) Lymphocytes # (Auto) 1.6 x10^3/uL (1.0-4.8) Monocytes # (Auto) 0.6 x10^3/uL (0.0-1.1) Eosinophils # (Auto) 0.2 x10^3/uL (0.0-0.7) Basophils # (Auto) 0.1 x10^3/uL (0.0-0.2) Platelet Estimate Increased (ADEQUATE) Polychromasia Slight Hypochromasia Marked Anisocytosis Mod Microcytosis Marked Sodium Level 134 mmol/L (136-145) Potassium Level 4.0 mmol/L (3.5-5.1) Chloride Level 100 mmol/L (98-107) Carbon Dioxide Level 26 mmol/L (21-32) Anion Gap 8 (6-14) Blood Urea Nitrogen 12 mg/dL (7-20) Creatinine 0.7 mg/dL (0.6-1.0) Estimated GFR (Cockcroft-Gault) 90.1 BUN/Creatinine Ratio 17 (6-20) Glucose Level 208 mg/dL (70-99) Calcium Level 8.6 mg/dL (8.5-10.1) Total Bilirubin 0.6 mg/dL (0.2-1.0) Aspartate Amino Transf (AST/SGOT) 37 U/L (15-37) Alanine Aminotransferase (ALT/SGPT) 18 U/L (14-59) Alkaline Phosphatase 115 U/L (46-116) Troponin I Quantitative < 0.017 ng/mL (0.000-0.055) [id number]-Type Natriuretic Peptide 79 pg/mL (0-124) Total Protein 8.4 g/dL (6.4-8.2) Albumin 3.6 g/dL (3.4-5.0) Albumin/Globulin Ratio 0.8 (1.0-1.7) Lipase 216 U/L (73-393) Urine Collection Type Unknown Urine Color Yellow Urine Clarity Clear Urine pH 6.5 Urine Specific [place] 1.015 Urine Protein Negative mg/dL (NEG-TRACE) Urine Glucose (UA) Negative mg/dL (NEG) Urine Ketones (Stick) Negative mg/dL (NEG) Urine Blood Negative (NEG) Urine Nitrite Negative (NEG) Urine Bilirubin Negative (NEG) Urine Urobilinogen Dipstick 1.0 mg/dL (0.2 mg/dL) Urine Leukocyte Esterase Moderate (NEG) Urine RBC 0 /HPF (0-2) Urine WBC 5-10 /HPF (0-4) Urine Squamous Epithelial Cells Few /LPF Urine Bacteria Few /HPF (0-FEW) Urine Mucus Slight /LPF Iron Level 10 ug/dL (50-170) Total Iron Binding Capacity 463 ug/dL (250-450) Iron Saturation 2 % (15-34) Free Thyroxine 0.76 ng/dL (0.76-1.46) Free Triiodothyronine (T3) pg/mL 1.91 pg/mL (2.18-3.98) Nasal Screen MRSA (PCR) Negative (Negative) Test 02/03/17 22:45 02/04/17 04:30 02/04/17 11:39 02/04/17 17:21 White Blood Count 10.5 x10^3/uL (4.0-11.0) 10.2 x10^3/uL (4.0-11.0) Red Blood Count 4.42 x10^6/uL (3.50-5.40) 4.31 x10^6/uL (3.50-5.40) Hemoglobin 7.5 g/dL (12.0-15.5) 7.4 g/dL (12.0-15.5) Hematocrit 25.7 % (36.0-47.0) 25.1 % (36.0-47.0) Mean Corpuscular Volume 58 fL (79-100) 58 fL (79-100) Mean Corpuscular Hemoglobin 17 pg (25-35) 17 pg (25-35) Mean Corpuscular Hemoglobin Concent 29 g/dL (31-37) 29 g/dL (31-37) Red Cell Distribution Width 30.3 % (11.5-14.5) 29.9 % (11.5-14.5) Platelet Count 464 x10^3/uL (140-400) 424 x10^3/uL (140-400) Neutrophils (%) (Auto) 73 % (31-73) Lymphocytes (%) (Auto) 17 % (24-48) Monocytes (%) (Auto) 7 % (0-9) Eosinophils (%) (Auto) 2 % (0-3) Basophils (%) (Auto) 1 % (0-3) Neutrophils # (Auto) 7.5 x10^3uL (1.8-7.7) Lymphocytes # (Auto) 1.8 x10^3/uL (1.0-4.8) Monocytes # (Auto) 0.7 x10^3/uL (0.0-1.1) Eosinophils # (Auto) 0.2 x10^3/uL (0.0-0.7) Basophils # (Auto) 0.1 x10^3/uL (0.0-0.2) Sodium Level 135 mmol/L (136-145) Potassium Level 3.8 mmol/L (3.5-5.1) Chloride Level 99 mmol/L (98-107) Carbon Dioxide Level 29 mmol/L (21-32) Anion Gap 7 (6-14) Blood Urea Nitrogen 8 mg/dL (7-20) Creatinine 0.6 mg/dL (0.6-1.0) Estimated GFR (Cockcroft-Gault) 107.6 Glucose Level 202 mg/dL (70-99) Calcium Level 8.4 mg/dL (8.5-10.1) Magnesium Level 1.8 mg/dL (1.8-2.4) Triglycerides Level 88 mg/dL (0-150) Cholesterol Level 79 mg/dL (0-200) LDL Cholesterol, Calculated 44 mg/dL (0-100) VLDL Cholesterol, Calculated 18 mg/dL (0-40) Non-HDL Cholesterol Calculated 62 mg/dL (0-129) HDL Cholesterol 17 mg/dL (40-60) Cholesterol/HDL Ratio 4.6 Thyroid Stimulating Hormone (TSH) 51.298 uIU/mL (0.358-3.74) Glucose (Fingerstick) 169 mg/dL (70-99) 233 mg/dL (70-99) Test 02/04/17 21:04 02/05/17 04:14 02/05/17 07:57 Glucose (Fingerstick) 185 mg/dL (70-99) 199 mg/dL (70-99) White Blood Count 12.2 x10^3/uL (4.0-11.0) Red Blood Count 4.88 x10^6/uL (3.50-5.40) Hemoglobin 8.0 g/dL (12.0-15.5) Hematocrit 28.1 % (36.0-47.0) Mean Corpuscular Volume 58 fL (79-100) Mean Corpuscular Hemoglobin 16 pg (25-35) Mean Corpuscular Hemoglobin Concent 29 g/dL (31-37) Red Cell Distribution Width 29.7 % (11.5-14.5) Platelet Count 486 x10^3/uL (140-400) Neutrophils (%) (Auto) 78 % (31-73) Lymphocytes (%) (Auto) 13 % (24-48) Monocytes (%) (Auto) 5 % (0-9) Eosinophils (%) (Auto) 3 % (0-3) Basophils (%) (Auto) 1 % (0-3) Neutrophils # (Auto) 9.5 x10^3uL (1.8-7.7) Lymphocytes # (Auto) 1.6 x10^3/uL (1.0-4.8) Monocytes # (Auto) 0.6 x10^3/uL (0.0-1.1) Eosinophils # (Auto) 0.3 x10^3/uL (0.0-0.7) Basophils # (Auto) 0.1 x10^3/uL (0.0-0.2) Sodium Level 136 mmol/L (136-145) Potassium Level 4.2 mmol/L (3.5-5.1) Chloride Level 99 mmol/L (98-107) Carbon Dioxide Level 33 mmol/L (21-32) Anion Gap 4 (6-14) Blood Urea Nitrogen 11 mg/dL (7-20) Creatinine 0.6 mg/dL (0.6-1.0) Estimated GFR (Cockcroft-Gault) 107.6 Glucose Level 158 mg/dL (70-99) Calcium Level 8.4 mg/dL (8.5-10.1) Laboratory Tests Test 02/04/17 17:21 02/04/17 21:04 02/05/17 04:14 02/05/17 07:57 Glucose (Fingerstick) 233 mg/dL (70-99) 185 mg/dL (70-99) 199 mg/dL (70-99) White Blood Count 12.2 x10^3/uL (4.0-11.0) Red Blood Count 4.88 x10^6/uL (3.50-5.40) Hemoglobin 8.0 g/dL (12.0-15.5) Hematocrit 28.1 % (36.0-47.0) Mean Corpuscular Volume 58 fL (79-100) Mean Corpuscular Hemoglobin 16 pg (25-35) Mean Corpuscular Hemoglobin Concent 29 g/dL (31-37) Red Cell Distribution Width 29.7 % (11.5-14.5) Platelet Count 486 x10^3/uL (140-400) Neutrophils (%) (Auto) 78 % (31-73) Lymphocytes (%) (Auto) 13 % (24-48) Monocytes (%) (Auto) 5 % (0-9) Eosinophils (%) (Auto) 3 % (0-3) Basophils (%) (Auto) 1 % (0-3) Neutrophils # (Auto) 9.5 x10^3uL (1.8-7.7) Lymphocytes # (Auto) 1.6 x10^3/uL (1.0-4.8) Monocytes # (Auto) 0.6 x10^3/uL (0.0-1.1) Eosinophils # (Auto) 0.3 x10^3/uL (0.0-0.7) Basophils # (Auto) 0.1 x10^3/uL (0.0-0.2) Sodium Level 136 mmol/L (136-145) Potassium Level 4.2 mmol/L (3.5-5.1) Chloride Level 99 mmol/L (98-107) Carbon Dioxide Level 33 mmol/L (21-32) Anion Gap 4 (6-14) Blood Urea Nitrogen 11 mg/dL (7-20) Creatinine 0.6 mg/dL (0.6-1.0) Estimated GFR (Cockcroft-Gault) 107.6 Glucose Level 158 mg/dL (70-99) Calcium Level 8.4 mg/dL (8.5-10.1) Microbiology 02/03/17 Urine Culture - Final, Complete 02/03/17 Urine Culture Result 1 (ANGEL) - Final, Complete Medications Current Medications Furosemide (Lasix) 40 mg 1X ONCE IVP Last administered on 02/03/17t 17:18; Start 02/03/17 at 16:45; Stop 02/03/17 at 16:46; Status DC Ondansetron HCl (Zofran) 4 mg PRN Q6HRS PRN IV NAUSEA/VOMITING Last administered on 02/03/17 17:17; Start 02/03/17 at 16:45 Prochlorperazine Edisylate (Compazine) 10 mg PRN Q6HRS PRN IV NAUSEA/VOMITING; Start 02/03/17 at 16:45 Oxycodone HCl (Roxicodone) 5 mg PRN Q3HRS PRN PO BREAKTHROUGH PAIN Last administered on 02/04/17 23:23; Start 02/03/17 at 16:45 Morphine Sulfate 1 mg PRN Q1HR PRN IV PAIN Last administered on 02/03/17 22:13 ; Start 02/03/17 at 16:45 Acetaminophen (Tylenol) 650 mg PRN Q6HRS PRN PO Headaches, Temp > 101.5F; Start 02/03/17 at 16:45 Levothyroxine Sodium (Synthroid) 150 mcg DAILY07 PO ; Start 02/03/17 at 17:00; Status Cancel Labetalol HCl (Normodyne) 10 mg PRN Q2HR PRN IVP 160/100; Start 02/03/17 at 16: 45 Levothyroxine Sodium (Synthroid) 150 mcg DAILY07 PO Last administered on 05:46; Start 02/03/17 at 17:00 Trimethoprim/ Sulfamethoxazole (Bactrim Ds) 1 tab BID PO Last administered on 09:35; Start 02/03/17 at 20:00 Furosemide (Lasix) 40 mg DAILY IVP Last administered on 02/04/17 08:25; Start 02/04/17 at 09:00; Stop 02/04/17 at 10:03; Status DC Ferrous Sulfate (Feosol) 325 mg DAILYWBKFT PO Last administered on 02/04/17 08 :25; Start 02/03/17 at 20:15; Stop 02/04/17 at 13:42; Status DC Insulin Aspart (NovoLOG) 0-5 UNITS TIDWMEALS SQ Last administered on 02/05/17 12:07; Start 02/04/17 at 12:00 Dextrose (Dextrose 50%-Water Syringe) 12.5 gm PRN Q15MIN PRN IV SEE COMMENTS; Start 02/04/17 at 09:30 Lisinopril (Prinivil) 20 mg DAILY PO Last administered on 02/05/17 09:34; Start 02/04/17 at 10:00 Hydrochlorothiazide (Microzide) 12.5 mg DAILY PO Last administered on 09:34; Start 02/04/17 at 10:00 Ferrous Sulfate (Feosol) 325 mg BIDWMEALS PO Last administered on 02/05/17 09: 34; Start 02/04/17 at 17:00 Ondansetron HCl (Zofran) 4 mg PRN Q6HRS PRN IV NAUSEA/VOMITING; Start 02/04/17 at 13:45 Active Scripts Active Ferrous Sulfate 325 Mg Tablet 1 Tab PO BID Hydrochlorothiazide Tablet (Hydrochlorothiazide) 12.5 Mg Tablet 1 Tab PO DAILY Lisinopril 20 Mg Tablet 1 Tab PO DAILY Synthroid (Levothyroxine Sodium) 150 Mcg Tablet 1 Tab PO DAILY Vitals/I & O Vital Sign - Last 24 Hours 02/04/17 02/04/17 02/04/17 02/04/17 16:00 16:15 19:00 19:15 Temp 97.2 98.1 97.2 98.1 Pulse 84 75 Resp 18 17 B/P (MAP) 113/79 (90) 129/80 (96) Pulse Ox 97 98 O2 Delivery Room Air Room Air Room Air Room Air 02/04/17 02/04/17 02/05/17 02/05/17 23:00 23:23 00:20 03:00 Temp 98.3 97.8 98.3 97.8 Pulse 90 82 Resp 18 16 14 18 B/P (MAP) 120/72 (88) 107/65 (79) Pulse Ox 96 98 98 95 O2 Delivery Room Air Room Air Room Air Room Air 02/05/17 02/05/17 02/05/17 02/05/17 07:00 08:00 09:34 11:00 Temp 97.9 97.9 97.9 97.9 Pulse 91 91 90 Resp 20 20 B/P (MAP) 116/69 (85) 116/69 128/74 (92) Pulse Ox 99 99 O2 Delivery Room Air Room Air Room Air Intake and Output 02/04/17 02/04/17 02/05/17 15:00 23:00 07:00 Intake Total 2260 ml 600 ml 420 ml Output Total 2600 ml Balance -340 ml 600 ml 420 ml VIVIANA BASS MD Feb 05, 2017 14:44
--- NOTE | 2017-02-05 15:42 | CARD ---
APPROVED REPORT EXAM: Two-dimensional and M-mode echocardiogram with Doppler and color Doppler. Other Information Quality : FairHR: 90bpm INDICATION Congestive Heart Failure 2D DIMENSIONS Left Atrium(2D)3.7 (1.6-4.0cm)IVSd1.1 (0.7-1.1cm) Aortic Root(2D)3.0 (2.0-3.7cm)LVDd4.2 (3.9-5.9cm) LVOT Diameter2.1 (1.8-2.4cm)PWd1.1 (0.7-1.1cm) LVDs2.8 (2.5-4.0cm)FS (%) 33.9 % SV50.3 mlLVEF(%)63.1 (>50%) M-Mode DIMENSIONS Aortic Cusp Exc1.94 (1.5-2.0cm) Aortic Valve AoV Peak Anup.152.2cm/sAoV VTI28.1cm AO Peak GR.9.3mmHgLVOT VTI 21.50cm AO Mean GR.6mmHg Mitral Valve MV E Ebzogauo640.9cm/sMV E Peak Gr.6mmHg MV DECEL [id number] A Xysrigxa99.2cm/s MV E Mean Gr.3mmHgE/A Ratio1.3 MV A [id number] TDI Lateral E' P. V7.21cm/sMedial E' P. V8.95cm/s Pulmonary Valve PV Peak Ywxmvfmn34.0cm/s Tricuspid Valve TR P. [id number]/sTR Peak Gr.61mmHg LEFT VENTRICLE The left ventricle is normal size. There is normal left ventricular wall thickness. The left ventricu lar systolic function is normal. The ejection fraction is 55-60%. There is normal LV segmental wall m otion. No left ventricle thrombus noted on this study. There is no ventricular septal defect visualiz ed. There is no left ventricular aneurysm. There is no mass noted in the left ventricle. RIGHT VENTRICLE The right ventricle is normal size. There is normal right ventricular wall thickness. The right ventr icular systolic function is normal. ATRIA The left atrium size is normal. The right atrium size is normal. The interatrial septum is intact wit h no evidence for an atrial septal defect or patent foramen ovale as noted on 2-D or Doppler imaging. AORTIC VALVE The aortic valve is normal in structure and function. Doppler and Color Flow revealed no significant aortic regurgitation. There is no significant aortic valvular stenosis. There is no aortic valvular v egetation. MITRAL VALVE The mitral valve is normal in structure and function. There is no evidence of mitral valve prolapse. There is no mitral valve stenosis. Doppler and Color Flow revealed no mitral valve regurgitation note d. TRICUSPID VALVE The tricuspid valve is normal in structure and function. Doppler and Color Flow revealed mild tricusp id regurgitation. There is no tricuspid valve prolapse or vegetation. There is no tricuspid valve izzy nosis. PULMONIC VALVE The pulmonary valve is normal in structure and function. Doppler and Color Flow revealed no pulmonic valvular regurgitation. There is no pulmonic valvular stenosis. GREAT VESSELS The aortic root is normal in size. The ascending aorta is normal in size. The IVC is normal in size a nd collapses >50% with inspiration. PERICARDIAL EFFUSION There is no pleural effusion. There is a moderate size circumferential pericardial effusion with no h emodynamic compromise. Critical Notification Critical Value: No <Conclusion> The left ventricle is normal size. The left ventricular systolic function is normal. The ejection fraction is 55-60%. There is no significant aortic valvular stenosis. Doppler and Color Flow revealed no significant aortic regurgitation. Doppler and Color Flow revealed no mitral valve regurgitation noted. Doppler and Color Flow revealed mild tricuspid regurgitation. Doppler and Color Flow revealed no pulmonic valvular regurgitation. There is a moderate size circumferential pericardial effusion with no hemodynamic compromise.
== END 2017-02-05 14:53 | disposition home or self-care (01) | DRG 644 ==
LOC: ER 15:07 → 1 WEST ICU 16:33 → 5 NORTH 02-04 16:21
PROVIDERS: ADMIT Internal Medicine; ATTEND Internal Medicine
PROC: 30233N1 Transfusion of Nonautologous Red Blood Cells into Peripheral Vein, Percutaneous Approach (ICD-10-PCS; principal; 2017-02-03)
DX: E03.9 Hypothyroidism, unspecified (principal); N39.0 Urinary tract infection, site not specified; D50.9 Iron deficiency anemia, unspecified; E11.9 Type 2 diabetes mellitus without complications; E66.9 Obesity, unspecified; E78.5 Hyperlipidemia, unspecified; R60.9 Edema, unspecified; I11.0 Hypertensive heart disease with heart failure; I50.9 Heart failure, unspecified; Z82.49 Family history of ischemic heart disease and other diseases of the circulatory system; Z68.31 Body mass index [BMI] 31.0-31.9, adult
CPT/HCPCS: 36415; 71010; 80048; 80053; 80061; 81001; 82962; 83036; 83540; 83550; 83690; 83735; 83880; 84439; 84443; 84481; 84484; 85007; 85027; 86850; 86900; 86901; 86920; 87086; 87641; 93005; 93306; 96374; 96375; J1815; J1940; J2270; J2405; P9016; 99285-25; A6539